=== PATIENT | female | born 1940 | race Caucasian/White ===

== ENCOUNTER 2018-01-18 13:41 | Inpatient (IN) | payer OTHER ==
--- NOTE | 2018-01-18 13:55 | PDOC ---
History of Present Illness - General Chief Complaint: Wound Stated Complaint: WOUND Time Seen by Provider: 01/18/18 13:54 - History of Present Illness Initial Comments: 01/18/18 14:16 Ms. Chahal is a 77 yo female w/ pmh of HTN, HLD, prior CVA (8 years ago), DM, chronic wound to RLE (followed by Dr. Parker), who presents from wound clinic for evaluation of suspected wound infection on direction of Dr. Parker. Patient reports she has likewise had subjective fevers at home. The patient denies chest pain, shortness of breath, headache and dizziness. Denies chills, nausea, vomit, diarrhea and constipation. Denies dysuria, frequency, urgency and hematuria. Allergies: NKS Past History - Past Medical History Allergies/Adverse Reactions: Allergies Allergy/AdvReac Type Severity Reaction Status Date / Time No Known Allergies Allergy Verified 01/18/18 13:47 Home Medications: Ambulatory Orders Coumadin 10 mg PO DAILY 12/28/14 Linzess 145 mcg PO DAILY 12/28/14 Norvasc - 10 mg PO DAILY 12/28/14 Omeprazole 40 mg PO DAILY 12/28/14 Proair Hfa - 108 mcg IH PRN PRN 12/28/14 SYMBICORT 160/4.5mcg - 160 mcg IH BID 12/28/14 Zocor 20 mg PO DAILY 12/28/14 Zyrtec - 10 mg PO HS 12/28/14 Furosemide [Lasix] 20 mg PO Q2D 08/28/16 Collagenase Clostridium Hist. [Santyl] 1 applic TP DAILY #90 oint...g. 10/05/17 Esomeprazole Magnesium [Nexium 24Hr] 40 mg PO DAILY 01/18/18 Glyburide 2.5 mg PO BID 01/18/18 Polyethylene Glycol 3350 [Miralax (For Daily Use) -] 17 gm PO DAILY PRN Sitagliptin Phosphate [Januvia -] 100 mg PO DAILY@0700 01/18/18 Anemia: No Asthma: Yes Cancer: No Cardiac Disorders: Yes CVA: Yes COPD: No CHF: No Dementia: No Diabetes: Yes GI Disorders: Yes Disorders: Yes HTN: Yes Hypercholesterolemia: Yes Liver Disease: No Seizures: No Thyroid Disease: No - Suicide/Smoking/Psychosocial Hx Smoking History: Former smoker Have you smoked in the past 12 months: No If you are a former smoker, when did you quit?: 14yrs ago Information on smoking cessation initiated: No Review of Systems - Review of Systems Comments:: 01/18/18 14:29 GENERAL/CONSTITUTIONAL: +Fever as described. No chills. No weakness. HEAD, EYES, EARS, NOSE AND THROAT: No change in vision. No ear pain or discharge. No sore throat. CARDIOVASCULAR: No chest pain or shortness of breath RESPIRATORY: No cough, wheezing, or hemoptysis. GASTROINTESTINAL: No nausea, vomiting, diarrhea or constipation. GENITOURINARY: No dysuria, frequency, or change in urination. MUSCULOSKELETAL: +RLE chronic wound steadily getting worse for the last month. No joint or muscle swelling or pain. No neck or back pain. SKIN: No rash NEUROLOGIC: No headache, vertigo, loss of consciousness, or change in strength/ sensation. ENDOCRINE: No increased thirst. No abnormal weight change HEMATOLOGIC/LYMPHATIC: No anemia, easy bleeding, or history of blood clots. ALLERGIC/IMMUNOLOGIC: No hives or skin allergy. *Physical Exam - Vital Signs Last Vital Signs Temp Pulse Resp BP Pulse Ox 98.3 F 95 H 18 121/60 97 01/18/18 13:42 01/18/18 13:42 01/18/18 13:42 01/18/18 13:42 01/18/18 13:42 - Physical Exam Comments: 01/18/18 14:30 GENERAL: Awake, alert, and fully oriented, in no acute distress HEAD: No signs of trauma, normocephalic, atraumatic EYES: PERRLA, EOMI, sclera anicteric, conjunctiva clear ENT: Auricles normal inspection, hearing grossly normal, nares patent, oropharynx clear without exudates. Moist mucosa NECK: Normal ROM, supple, no lymphadenopathy, JVD, or masses LUNGS: No distress, speaks full sentences, clear to auscultation bilaterally HEART: Regular rate and rhythm, normal S1 and S2, no murmurs, rubs or gallops, peripheral pulses normal and equal bilaterally. ABDOMEN: Soft, nontender, normoactive bowel sounds. No guarding, no rebound. No masses EXTREMITIES: +RLE approx. 3cm wound w/ 15cm surrounding erythema and warmth. Normal range of motion, no edema. No clubbing or cyanosis. NEUROLOGICAL: Cranial nerves II through XII grossly intact. Normal speech, normal gait, no focal sensorimotor deficits SKIN: Warm, Dry, normal turgor, no rashes or lesions noted. ED Treatment Course - LABORATORY CBC & Chemistry Diagram: 01/18/18 14:15 01/18/18 14:15 Medical Decision Making - Medical Decision Making 01/18/18 14:38 Ms. Chahal is a 77 yo female w/ pmh as described who presents for evaluation of RLE ulcer concerning for infectious process. Sepsis protocol started. Patient started on vanc/zosyn after blood cultures and wound culture drawn. Patient admitted to [facility] for further evaluation. *DC/Admit/Observation/Transfer Diagnosis at time of Disposition: Venous stasis dermatitis of right lower extremity Venous stasis ulcer Qualifiers: Venous stasis ulcer site: unspecified site Varicose vein presence: with varicose veins Non-pressure ulcer stage: unspecified non-pressure ulcer stage Qualified Code(s): I83.009 - Varicose veins of unspecified lower extremity with ulcer of unspecified site - Discharge Dispostion Decision to Admit order: Yes - Referrals - Patient Instructions - Post Discharge Activity
--- NOTE | 2018-01-18 14:28 | PDOC ---
Attending Attestation - Resident Resident Name: Juan Loving - ED Attending Attestation I have performed the following: I have examined & evaluated the patient, The case was reviewed & discussed with the resident, I agree w/resident's findings & plan, Exceptions are as noted - HPI HPI: 01/18/18 14:27 77-year-old female history of hypertension, diabetes, hyperlipidemia, coronary disease, stroke, chronic right lower extremity wound sent in from wound clinic for cellulitis. The patient denies any worsening pain but does report that there is significant redness to the area. Reports subjective fevers at home. Patient was seen by vascular surgeon, Dr. Parker, who sent the patient into the ER for admission for IV antibiotics. - Physicial Exam PE: 01/18/18 14:27 GENERAL: Awake, alert, and fully oriented, in no acute distress HEAD: No signs of trauma EYES: EOMI, sclera anicteric, conjunctiva clear ENT: Auricles normal inspection, hearing grossly normal, nares patent, Moist mucosa NECK: Normal ROM, supple, EXTREMITIES: Normal range of motion. Diffuse erythema and mild pitting edema RLE with superficial chronic R anterior vogt wound ~3x3 cm. No fluctuance. NEUROLOGICAL: Cranial nerves II through XII grossly intact. Normal speech, normal gait SKIN: Warm, Dry, normal turgor, no rashes or lesions noted. - Medical Decision Making 01/18/18 14:28 Vital Signs Temp Pulse Resp BP Pulse Ox 98.3 F 95 H 18 121/60 97 01/18/18 13:42 01/18/18 13:42 01/18/18 13:42 01/18/18 13:42 01/18/18 13:42 I agree that the patient has cellulitis. Obtain blood work including cultures and lactic acid. Initiate empiric IV antibiotics. Admit the patient to the hospital. Heart Score/ECG Review #1 ECG reviewed & interpreted by me at: 15:40 01/18/18 16:32 NSR 84, no std/kody, left axis deviation, LAFB, QTC 479 msec
[2018-01-18 14:31] LABS: BASO % 1.2 % (0-2.0); EOS % 10.1 % (0-4.5); HEMATOCRIT 42.9 % (32.4-45.2); HEMOGLOBIN 14.3 GM/dL (10.7-15.3); LYMPH % 25.9 % (8-40); MCH 29.4 pg (25.7-33.7); MCHC 33.3 g/dl (32.0-36.0); MEAN CELL VOLUME 88.5 fl (80-96); MEAN PLT VOLUME 9.1 fl (7.5-11.1); MONO % 8.1 % (3.8-10.2); NEUT % 54.7 % (42.8-82.8); PLATELET COUNT 216 K/MM3 (134-434); RBC 4.85 M/mm3 (3.60-5.2)
[2018-01-18] MEDS ORDERED: VANCOMYCIN 1,000 MG in DEXTROSE 5%-WATER - 250 ML IVPB ONE (14:33)
[2018-01-18] MEDS ORDERED: PIPERACILLIN/TAZOB 3.375 GM 3.375 GM in DEXTROSE 5%-WATER - 50 ML IVPB ONE (14:33)
[2018-01-18 14:34] LABS: VENOUS PC02 42.6 mmHg (38-52); VENOUS PH 7.37 (7.32-7.42); VENOUS PO2 44.5 mmHg (28-48)
[2018-01-18] MEDS ORDERED: SODIUM CHLORIDE 1,000 ML IV STA (14:34)
[2018-01-18] MEDS ORDERED: VANCOMYCIN 500 MG VIAL (RESTRICTED TO ID ONLY) ONE (14:37)
[2018-01-18] MEDS ORDERED: PIPERACILLIN/TAZOB 3.375 GM 3.375 GM/50 ML BAG IVPB ONE (14:37)
[2018-01-18 14:55] LABS: PROTHROMBIN TIME (PATIENT) 68.9 SEC (9.7-13.0)
[2018-01-18 14:58] LABS: ACTIVATED PTT 68.8 SECONDS (25.2-36.5)
[2018-01-18 15:04] LABS: INR 6.1 (0.83-1.09)
--- NOTE | 2018-01-18 15:04 | HP ---
Admitting History and Physical - Primary Care Physician PCP: Titi York I - Admission History of Present Illness: 77-year-old female history of hypertension, diabetes, hyperlipidemia, coronary disease, stroke on coumadin , chronic right lower extremity wound sent in from wound clinic for cellulitis. The patient denies any worsening pain but does report that there is significant redness to the area. Reports subjective fevers at home. Patient was seen by vascular surgeon, Dr. Parker, who sent the patient into the ER for admission for IV antibiotics. 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 Cardiovascular: Yes: HTN, Hyperlipdemia Endocrine: Yes: Diabetes Mellitus - Smoking History Smoking history: Former smoker Have you smoked in the past 12 months: No If you are a former smoker, when did you quit?: 14yrs ago Home Medications - Allergies Allergies/Adverse Reactions: Allergies Allergy/AdvReac Type Severity Reaction Status Date / Time No Known Allergies Allergy Verified 01/18/18 13:47 - Home Medications Home Medications: Ambulatory Orders Coumadin 10 mg PO DAILY 12/28/14 Linzess 145 mcg PO DAILY 12/28/14 Norvasc - 10 mg PO DAILY 12/28/14 Omeprazole 40 mg PO DAILY 12/28/14 Proair Hfa - 108 mcg IH PRN PRN 12/28/14 SYMBICORT 160/4.5mcg - 160 mcg IH BID 12/28/14 Zocor 40 mg PO DAILY 12/28/14 Zyrtec - 10 mg PO HS 12/28/14 Furosemide [Lasix] 20 mg PO Q2D 08/28/16 Collagenase Clostridium Hist. [Santyl] 1 applic TP DAILY #90 oint...g. 10/05/17 Esomeprazole Magnesium [Nexium 24Hr] 40 mg PO DAILY 01/18/18 Glyburide 2.5 mg PO BID 01/18/18 Polyethylene Glycol 3350 [Miralax (For Daily Use) -] 17 gm PO DAILY PRN Sitagliptin Phosphate [Januvia -] 100 mg PO DAILY@0700 01/18/18 Review of Systems - Review of Systems Gastrointestinal: reports: Abdominal Pain Musculoskeletal: reports: Other (right leg pain) Physical Examination Vital Signs: Vital Signs Temperature 98.3 F 01/18/18 13:42 Pulse Rate 95 H 01/18/18 13:42 Respiratory Rate 18 01/18/18 13:42 Blood Pressure 121/60 01/18/18 13:42 O2 Sat by Pulse Oximetry (%) 97 01/18/18 13:42 Constitutional: Yes: Calm Cardiovascular: Yes: Regular Rate and Rhythm, S1, S2 Respiratory: Yes: CTA Bilaterally Gastrointestinal: Yes: Soft, Distention, Other (RUQ pain) Extremities: Yes: Erythema (tenderness open wound) Edema: Yes Neurological: Yes: Alert, Oriented Labs: CBC, BMP 01/18/18 14:15 Problem List - Problems (1) Venous stasis ulcer Assessment/Plan: iD consult iv abx for cellutlits and wound wound care consult doppler of legs dvt ppx Code(s): I83.009 - VARICOSE VEINS OF UNSP LOWER EXTREMITY W ULCER OF UNSP SITE; L97.909 - NON-PRS CHRONIC ULC UNSP PRT OF UNSP LOW LEG W UNSP SEVERITY Qualifiers: Venous stasis ulcer site: unspecified site Varicose vein presence: with varicose veins Non-pressure ulcer stage: unspecified non-pressure ulcer stage Qualified Code(s): I83.009 - Varicose veins of unspecified lower extremity with ulcer of unspecified site; L97.909 - Non-pressure chronic ulcer of unspecified part of unspecified lower leg with unspecified severity (2) Diabetes Assessment/Plan: bgm hgba1c sliding scale Code(s): E11.9 - TYPE 2 DIABETES MELLITUS WITHOUT COMPLICATIONS Qualifiers: Diabetes mellitus type: type 2 (3) CVA (cerebral vascular accident) Assessment/Plan: on coumadin hold given supratherapeutic INR Code(s): I63.9 - CEREBRAL INFARCTION, UNSPECIFIED (4) COPD (chronic obstructive pulmonary disease) Assessment/Plan: symbicort Code(s): J44.9 - CHRONIC OBSTRUCTIVE PULMONARY DISEASE, UNSPECIFIED (5) Abdominal pain Assessment/Plan: RUQ pain r/o gall stones gi eval Code(s): R10.9 - UNSPECIFIED ABDOMINAL PAIN
[2018-01-18 15:06] LABS: URINE APPEARANCE CLEAR; URINE BILIRUBIN NEGATIVE (<2.0 mg/dL); URINE COLOR YELLOW; URINE GLUCOSE (UA) 1+ (NEGATIVE); URINE KETONE NEGATIVE (NEGATIVE); URINE NITRITE NEGATIVE (NEGATIVE); URINE PROTEIN NEGATIVE (NEGATIVE); URINE UROBILINOGEN NEGATIVE mg/dL (0.2-1.0)
[2018-01-18 15:13] LABS: URINE LEUK ESTERASE 1+ (NEGATIVE)
[2018-01-18 15:16] LABS: EPI CELLS RARE /HPF (FEW); URINE HYALINE CAST 1 /lpf; URINE MUCUS RARE
[2018-01-18 15:55] LABS: ALBUMIN 3.6 g/dl (3.4-5.0); ALK PHOS 78 U/L (45-117); ANION GAP 5 MMOL/L (8-16); BILIRUBIN,TOTAL 0.5 mg/dL (0.2-1); BLOOD UREA NITROGEN 24 mg/dL (7-18); CALCIUM 8.4 mg/dL (8.5-10.1); CHLORIDE 107 mmol/L (98-107); CO2 26 mmol/L (21-32); CREATININE 0.5 mg/dL (0.55-1.3); GLUCOSE,RANDOM 96 mg/dL (74-106); SGOT/AST 22 U/L (15-37); SGPT/ALT 25 U/L (13-61); SODIUM 138 mmol/L (136-145); TOT PROT 7.4 g/dl (6.4-8.2)
[2018-01-18] MEDS: INSULIN SLIDING SCALE (NOVOLOG) 1 VIAL SQ SCH ×2 (16:31→22:18)
--- NOTE | 2018-01-18 18:48 | PN ---
Progress Note (short form) - Note Progress Note: ID Consult dictated Infected non-healing R LE ulcers Cellulitis R LE Hx MSSA/ Pseudomonas wound c/s Await c/s Surgical evaluation Empiric vancomycin/ zosyn
--- NOTE | 2018-01-18 20:33 | CONS ---
DATE OF CONSULTATION: DATE OF DICTATION: 01/18/2018 HISTORY: The patient is a 77-year-old diabetic female with a history of nonhealing leg ulcer who was elevated for right lower extremity cellulitis. She is followed in noted to have Wound Care Center for a nonhealing right leg ulcer. She was seen today where she was noted to have tense swelling of the right lower extremity with erythema, warmth, and a large amount of serous drainage. The reports at home she has had increased weeping from the right lower extremity and subjective fever. She was not feeling well. She was sent from the Wound Care Center to the emergency room. A Doppler exam was performed, and the results are pending. She has had a history of nonhealing ulcer and has had a history of wound infection. Cultures in the past have grown Staphylococcus aureus, pseudomonas, and enterococcus. PAST MEDICAL HISTORY: Positive for hypertension, hyperlipidemia, stroke, diabetes mellitus. ALLERGIES: No known allergies. MEDICATIONS: Glyburide, Coumadin, Norvasc, omeprazole, Symbicort, Zocor, Zyrtec, Lasix, Nexium. SOCIAL HISTORY: Lives at home with her . Former smoker. SYSTEMS REVIEW: Neurologic: No loss of consciousness, seizure activity, focal weakness. Cardiac: Negative chest pain or palpitations. Respiratory: Negative cough or sputum production. Gastrointestinal: Negative vomiting or diarrhea. LABORATORY DATA: White count 7, hematocrit 42.9, platelet count 216, creatinine 0.5. Liver enzymes normal. Urinalysis 1 white cell. Blood and wound culture pending. PHYSICAL EXAMINATION: General: She is awake and alert. She is not acutely toxic appearing. Vital Signs: Temperature 98.3, blood pressure 121/60, pulse 95 and regular, respirations 18 per minute. HEENT: Sclerae anicteric. Heart: Sounds S1, S2. Lungs: Clear. Abdomen: Obese, soft, nontender. Extremities: Examination of the right lower extremity, there are chronic venostasis changes. There is tense swelling of the right lower extremity with patchy erythema and warmth. There are 2 superficial ulcers present over the mid tibial area from which there is a large amount of yellow, serous drainage. No crepitus or fluctuance. No lymphangitic streaking. IMPRESSION: 1. Infected, chronic, nonhealing leg ulcer. 2. Cellulitis of the right lower extremity. 3. Diabetes mellitus. 4. History of Staphylococcus aureus and pseudomonas wound infection. PLAN: Await cultures. Empiric antibiotic coverage with vancomycin and Zosyn. Local wound care. Elevation. The case was discussed with the patient's present at the time of the examination in the emergency room. We will follow. Thank you for the kind referral. ROCHELLE MARS M.D. [id number]
[2018-01-18] MEDS ORDERED: PIPERACILLIN/TAZOBACTAM 3.375 GM VIAL IVPB ONE (22:02)
[2018-01-18] MEDS ORDERED: DEXTROSE 5%-WATER - 50 ML IVPB ONE (22:02)
[2018-01-18] MEDS: PIPERACILLIN/TAZOB 3.375 GM 3.375 GM in DEXTROSE 5%-WATER - 50 ML IVPB SCH (22:05)
[2018-01-18] MEDS: BUDESONIDE/FORMETEROL FUMARATE 160/4.5 mcg INHALER IH SCH (22:06)
[2018-01-18] MEDS: ATORVASTATIN CA 40 MG TABLET (FP) PO SCH (22:06)
[2018-01-19] MEDS ORDERED: PIPERACILLIN/TAZOBACTAM 3.375 GM VIAL IVPB ONE ×2 (01:02→09:15)
[2018-01-19] MEDS ORDERED: DEXTROSE 5%-WATER - 50 ML IVPB ONE ×2 (01:02→09:15)
[2018-01-19] MEDS: PIPERACILLIN/TAZOB 3.375 GM 3.375 GM in DEXTROSE 5%-WATER - 50 ML IVPB SCH ×3 (01:19→17:16)
[2018-01-19] MEDS: VANCOMYCIN 1,000 MG in DEXTROSE 5%-WATER - 250 ML IVPB SCH ×2 (02:22→15:12)
[2018-01-19] MEDS: INSULIN SLIDING SCALE (NOVOLOG) 1 VIAL SQ SCH ×4 (06:42→22:50)
[2018-01-19 08:08] LABS: HEMATOCRIT 41.3 % (32.4-45.2); HEMOGLOBIN 13.7 GM/dL (10.7-15.3); MCH 29.1 pg (25.7-33.7); MCHC 33.1 g/dl (32.0-36.0); MEAN CELL VOLUME 87.7 fl (80-96); MEAN PLT VOLUME 9.3 fl (7.5-11.1); PLATELET COUNT 217 K/MM3 (134-434); RDW 14.6 % (11.6-15.6); WHITE BLOOD COUNT 7.3 K/mm3 (4.0-10.0)
[2018-01-19 08:16] LABS: PROTHROMBIN TIME (PATIENT) 94.7 SEC (9.7-13.0)
[2018-01-19 08:38] LABS: INR 8.38 (0.83-1.09)
[2018-01-19] MEDS ORDERED: PHYTONADIONE 5 MG TABLET PO ONE (08:46)
[2018-01-19] MEDS ORDERED: ALBUTEROL SO4 2.5/IPRATROPIUM 0.5 INH SOL 3 ML VIAL.NEB. NEB PRN (08:50)
[2018-01-19 08:56] LABS: ALBUMIN 3.4 g/dl (3.4-5.0); ALK PHOS 73 U/L (45-117); ANION GAP 6 MMOL/L (8-16); BILIRUBIN,TOTAL 0.8 mg/dL (0.2-1); BLOOD UREA NITROGEN 15 mg/dL (7-18); CALCIUM 8.3 mg/dL (8.5-10.1); CHLORIDE 106 mmol/L (98-107); CO2 27 mmol/L (21-32); CREATININE 0.6 mg/dL (0.55-1.3); GLUCOSE,RANDOM 134 mg/dL (74-106); POTASSIUM 4.3 mmol/L (3.5-5.1); SGOT/AST 18 U/L (15-37); SGPT/ALT 23 U/L (13-61); SODIUM 139 mmol/L (136-145)
--- NOTE | 2018-01-19 09:17 | PN ---
Progress Note, Physician Chief Complaint: RLE cellulitis Coumadin toxicity History of Present Illness: NAD no pain at this time Sent from wound care center for IV abx no S&S of sepsis elevated INR, Unsure why she is on Warfarin - Current Medication List Current Medications: Active Medications Acetaminophen (Tylenol -) 650 mg PO Q4H PRN PRN Reason: PAIN LEVEL 1-5 Albuterol/Ipratropium (Duoneb -) 1 amp NEB Q4H PRN PRN Reason: SHORTNESS OF BREATH Atorvastatin Calcium (Lipitor -) 40 mg PO HS COUNT INCLUDES THE [facility] Last Admin: 01/18/18 22:06 Dose: 40 mg Budesonide/Formoterol Fumarate (Symbicort 160/4.5mcg -) 2 puff IH BID COUNT INCLUDES THE [facility] Last Admin: 01/18/18 22:06 Dose: 2 puff Collagenase (Santyl -) 1 applic TP DAILY COUNT INCLUDES THE [facility]; Protocol Vancomycin HCl 1,000 mg/ (Dextrose) 250 mls @ 166.667 mls/hr IVPB BID@0300, 1500 COUNT INCLUDES THE [facility]; Protocol Last Admin: 01/19/18 02:22 Dose: 166.667 mls/hr Piperacillin Sod/Tazobactam (Sod 3.375 gm/ Dextrose) 50 mls @ 100 mls/hr IVPB Q8H-IV [place]; Protocol Last Admin: 01/19/18 01:19 Dose: 100 mls/hr Insulin Aspart (Novolog Vial Sliding Scale -) 1 vial SQ ACHS COUNT INCLUDES THE [facility]; Protocol Last Admin: 01/19/18 06:42 Dose: Not Given Insulin Detemir (Levemir Vial) 15 units SQ AM COUNT INCLUDES THE [facility] Pantoprazole Sodium (Protonix -) 40 mg PO DAILY COUNT INCLUDES THE [facility] Phytonadione (Mephyton -) 5 mg PO ONCE ONE Stop: 01/19/18 08:47 Sitagliptin Phosphate (Januvia -) 100 mg PO DAILY@0700 COUNT INCLUDES THE [facility] - Objective Vital Signs: Vital Signs Temperature 98.8 F 01/19/18 05:31 Pulse Rate 82 01/19/18 05:31 Respiratory Rate 18 01/19/18 05:31 Blood Pressure 113/63 01/19/18 05:31 O2 Sat by Pulse Oximetry (%) 95 01/18/18 21:00 Constitutional: Yes: Well Nourished, No Distress, Calm Cardiovascular: Yes: Regular Rate and Rhythm Respiratory: Yes: Regular Gastrointestinal: Yes: Normal Bowel Sounds, Soft Musculoskeletal: Yes: WNL Extremities: Yes: WNL, Other (RLE small opening, mild swelling, no erythema, slightly warm to tough) Edema: No Peripheral Pulses WNL: Yes Wound/Incision: Yes: Clean/Dry, Well Approximated, Dressing Removed, Draining ( mild serous fluid) Neurological: Yes: Alert, Oriented Psychiatric: Yes: Alert, Oriented Labs: CBC, BMP 01/19/18 06:00 INR, PTT INR 8.38 (0.83-1.09) H* 01/19/18 06:00 Problem List - Problems (1) Cholelithiasis Assessment/Plan: -on U/S abdomen -No pain at this time, intermittent pain after eating -Nausea after eating Code(s): K80.20 - CALCULUS OF GALLBLADDER W/O CHOLECYSTITIS W/O OBSTRUCTION (2) Venous stasis ulcer Assessment/Plan: -RLE -Seen by ID -afebrile, no leukocytosis -unsure about the need for IV abx -mild serous drainage -no pain at this time, intermittent pain -self ambulatory -uncontrolled diabetes -previously superficial vein insufficiency at distal calf great saphenous vein -Wound culture done-pending, previously grew staph aureus, pseudomonas aeruginosa and enterococcus faecalis Code(s): I83.009 - VARICOSE VEINS OF UNSP LOWER EXTREMITY W ULCER OF UNSP SITE; L97.909 - NON-PRS CHRONIC ULC UNSP PRT OF UNSP LOW LEG W UNSP SEVERITY Qualifiers: Venous stasis ulcer site: unspecified site Varicose vein presence: with varicose veins Non-pressure ulcer stage: unspecified non-pressure ulcer stage Qualified Code(s): I83.009 - Varicose veins of unspecified lower extremity with ulcer of unspecified site; L97.909 - Non-pressure chronic ulcer of unspecified part of unspecified lower leg with unspecified severity (3) Diabetes Assessment/Plan: -A1c at 10.1 -BGM AC HS -restart Januvia 100 mg po daily -Levemir 15 units in AM -Novolog sliding scale -diabetic diet -RD consult -endocrinology f/u outpatient Code(s): E11.9 - TYPE 2 DIABETES MELLITUS WITHOUT COMPLICATIONS Qualifiers: Diabetes mellitus type: type 2 (4) Elevated INR Assessment/Plan: -Unsure why she is on warfarin -elevated 2/2 to abx -Vit K 5 mg po once -no overt bleeding Code(s): R79.1 - ABNORMAL COAGULATION PROFILE Assessment/Plan see problem list possible d/c on PO abx if ID agrees.
[2018-01-19] MEDS ORDERED: PT OWN MED DRAWER 7, Y5N ONE ×2 (09:37→20:29)
[2018-01-19] MEDS: BUDESONIDE/FORMETEROL FUMARATE 160/4.5 mcg INHALER IH SCH ×2 (10:14→22:50)
[2018-01-19] MEDS: sitaGLIPtin PHOSPHATE 100 MG TABLET (FP) PO SCH (10:15)
[2018-01-19] MEDS: PANTOPRAZOLE 40 MG TABLET (FP) PO SCH (10:15)
[2018-01-19] MEDS: COLLAGENASE CLOSTRIDIUM HIST. 30 GRAMS TUBE TP SCH (10:28)
[2018-01-19 11:47] LABS: CHOLESTEROL 102 mg/dL (50-200); HDL CHOLESTEROL 34 mg/dL (40-60); TRIGLYCERIDES 117 mg/dL (0-150)
--- NOTE | 2018-01-19 12:33 | PN ---
Progress Note (short form) - Note Progress Note: continued pain and erythema and warmth of the RLE Vital Signs Period Temp Pulse Resp BP Sys/Daigle Pulse Ox Last 24 Hr 98.0 F-98.8 F 82-95 16-18 110-133/55-70 95-97 cor-rrr lungs clear ext venous stasis changed, right foot is swollen and warm, with erythema and pain up to lower vogt, +skin tears CBC, BMP 01/19/18 06:00 01/19/18 06:00 Microbiology 01/18/18 11:23 Leg - Right Lower Gram Stain - Final 01/18/18 11:23 Leg - Right Lower Wound Culture - Preliminary Presumptive Mssa (Pbp2a Neg) Gram Negative Rasheed 01/18/18 14:40 Urine - Urine Clean Catch Urine Culture - Final Contaminated: Please Repeat a/p soft tissue infection RLE would continue zosyn, d/c vancomycin
--- NOTE | 2018-01-19 15:35 | EKG ---
Test Reason : Blood Pressure : / mmHG Vent. Rate : 084 BPM Atrial Rate : 084 BPM P-R Int : 186 ms QRS Dur : 088 ms QT Int : 406 ms P-R-T Axes : -09 -50 013 degrees QTc Int : 479 ms NORMAL SINUS RHYTHM LEFT ANTERIOR FASCICULAR BLOCK ABNORMAL ECG WHEN COMPARED WITH ECG OF 06-MAY-2009 09:23, NONSPECIFIC T WAVE ABNORMALITY, IMPROVED IN INFERIOR LEADS Confirmed by MD Ian, Issac ([id number]) on 01/19/2018 3:35:38 PM Referred By: Confirmed By:sIsac Sosa MD
[2018-01-19] MEDS ORDERED: INSULIN (NOVOLOG) ASPART 100 UNITS/ML 10ML VIAL ONE ×2 (17:31→20:29)
--- NOTE | 2018-01-19 18:17 | CONSULT ---
- Consultation REQUESTING PROVIDER: Betty Mcdermott WORKPLACE RELATIONS ADVISER CONSULT REQUEST: We have been asked to surgically evaluate this patient for ? symptomatic gallbladder disease ? PCP:Jaclyn Adams HISTORY OF PRESENT ILLNESS: 77 y/o female admitted from Wound Care with ? 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 PMHx: CVA/PVD/CHF/NIDDM/HLD PSHx: noneHome Medications Medication Instructions Recorded Coumadin 10 mg PO DAILY 12/28/14 Linzess 145 mcg PO DAILY 12/28/14 Norvasc - 10 mg PO DAILY 12/28/14 Omeprazole 40 mg PO DAILY 12/28/14 Proair Hfa - 108 mcg IH PRN PRN 12/28/14 SYMBICORT 160/4.5mcg - 160 mcg IH BID 12/28/14 Zocor 40 mg PO DAILY 12/28/14 Zyrtec - 10 mg PO HS 12/28/14 Furosemide [Lasix] 20 mg PO Q2D 08/28/16 Collagenase Clostridium Hist. 1 applic TP DAILY #90 oint...g. 10/05/17 [Santyl] Esomeprazole Magnesium [Nexium 40 mg PO DAILY 01/18/18 24Hr] Glyburide 2.5 mg PO BID 01/18/18 Polyethylene Glycol 3350 [Miralax 17 gm PO DAILY PRN 01/18/18 (For Daily Use) -] Sitagliptin Phosphate [Januvia -] 100 mg PO DAILY@0700 01/18/18 Allergies Allergy/AdvReac Type Severity Reaction Status Date / Time No Known Allergies Allergy Verified 01/18/18 13:47 PHYSICAL EXAM: GENERAL: Awake, alert, and fully oriented, in no acute distress. HEAD: Normal with no signs of trauma. EYES: sclera anicteric, conjunctiva clear. NECK: Normal ROM, supple without lymphadenopathy, JVD, or masses. ABDOMEN: Soft, nontender, not distended, normoactive bowel sounds, no guarding, no rebound, no masses. No organomegaly. No hernias MUSCULOSKELETAL: Normal ROM at all joints. No bony deformities or tenderness. No CVA tenderness. UPPER EXTREMITIES: VSD present LOWER EXTREMITIES: wound RLE; VSD present NEUROLOGICAL: Normal speech, gait not observed. PSYCH: Cooperative. Good eye contact. Appropriate mood and affect. SKIN: Warm, dry, normal turgor, no rashes or lesions noted. Vital Signs Temperature 97.7 F 01/19/18 16:50 Pulse Rate 91 H 01/19/18 16:50 Respiratory Rate 18 01/19/18 16:50 Blood Pressure 110/65 01/19/18 16:50 O2 Sat by Pulse Oximetry (%) 94 L 01/19/18 09:00 Lab Results WBC 7.3 K/mm3 (4.0-10.0) 01/19/18 06:00 RBC 4.70 M/mm3 (3.60-5.2) 01/19/18 06:00 Hgb 13.7 GM/dL (10.7-15.3) 01/19/18 06:00 Hct 41.3 % (32.4-45.2) 01/19/18 06:00 MCV 87.7 fl (80-96) 01/19/18 06:00 MCHC 33.1 g/dl (32.0-36.0) 01/19/18 06:00 RDW 14.6 % (11.6-15.6) 01/19/18 06:00 Plt Count 217 K/MM3 (134-434) 01/19/18 06:00 Sodium 139 mmol/L (136-145) 01/19/18 06:00 Potassium 4.3 mmol/L (3.5-5.1) 01/19/18 06:00 Chloride 106 mmol/L (98-107) 01/19/18 06:00 Carbon Dioxide 27 mmol/L (21-32) 01/19/18 06:00 Anion Gap 6 MMOL/L (8-16) L 01/19/18 06:00 BUN 15 mg/dL (7-18) 01/19/18 06:00 Creatinine 0.6 mg/dL (0.55-1.3) 01/19/18 06:00 Random Glucose 134 mg/dL (74-106) H 01/19/18 06:00 Calcium 8.3 mg/dL (8.5-10.1) L 01/19/18 06:00 INR 8.38 (0.83-1.09) H* 01/19/18 06:00 US- normal biliary tract h/e slight cbd dilatation increased since 2010 IMP: no evidence of an acute surgical problem at this time; no evidence of symptomatic gallbladder disease h/e ongoing w/u is indicated as noted in US report PLAN:No surgical intervention indicated at this time; ongoing w/u as an outpatient. Armand Haile MD FACS
[2018-01-19] MEDS: ATORVASTATIN CA 20 MG TABLET (FP) PO SCH (22:51)
[2018-01-19] MEDS: ATORVASTATIN CA 40 MG TABLET (FP) PO SCH (22:57)
[2018-01-20] MEDS ORDERED: PIPERACILLIN/TAZOBACTAM 3.375 GM VIAL IVPB ONE ×3 (02:30→17:30)
[2018-01-20] MEDS ORDERED: DEXTROSE 5%-WATER - 50 ML IVPB ONE ×3 (02:31→17:30)
[2018-01-20] MEDS: PIPERACILLIN/TAZOB 3.375 GM 3.375 GM in DEXTROSE 5%-WATER - 50 ML IVPB SCH ×3 (02:41→18:38)
[2018-01-20] MEDS ORDERED: PT OWN MED DRAWER 7, Y5N ONE (03:40)
[2018-01-20] MEDS: VANCOMYCIN 1,000 MG in DEXTROSE 5%-WATER - 250 ML IVPB SCH (03:42)
[2018-01-20] MEDS: INSULIN SLIDING SCALE (NOVOLOG) 1 VIAL SQ SCH ×4 (07:08→22:06)
[2018-01-20] MEDS: INSULIN (LEVEMIR) 100 UNITS/ML UNITS SQ SCH (07:08)
[2018-01-20] MEDS: sitaGLIPtin PHOSPHATE 100 MG TABLET (FP) PO SCH (07:08)
[2018-01-20] MEDS ORDERED: INSULIN (NOVOLOG) ASPART 100 UNITS/ML 10ML VIAL ONE ×3 (07:13→21:12)
[2018-01-20 07:58] LABS: INR 2.2 (0.83-1.09); PROTHROMBIN TIME (PATIENT) 24.9 SEC (9.7-13.0)
--- NOTE | 2018-01-20 07:58 | PN ---
Progress Note, Physician Chief Complaint: RLE cellulitis Coumadin toxicity History of Present Illness: NAD no pain at this time Sent from wound care center for IV abx no S&S of sepsis elevated INR, Unsure why she is on Warfarin - Current Medication List Current Medications: Active Medications Acetaminophen (Tylenol -) 650 mg PO Q4H PRN PRN Reason: PAIN LEVEL 1-5 Albuterol/Ipratropium (Duoneb -) 1 amp NEB Q4H PRN PRN Reason: SHORTNESS OF BREATH Last Admin: 01/19/18 19:40 Dose: 1 amp Atorvastatin Calcium (Lipitor -) 20 mg PO HS [facility] Last Admin: 01/19/18 22:51 Dose: 20 mg Budesonide/Formoterol Fumarate (Symbicort 160/4.5mcg -) 2 puff IH BID [facility] Last Admin: 01/19/18 22:50 Dose: 2 puff Collagenase (Santyl -) 1 applic TP DAILY [facility]; Protocol Last Admin: 01/19/18 10:28 Dose: 1 applic Vancomycin HCl 1,000 mg/ (Dextrose) 250 mls @ 166.667 mls/hr IVPB BID@0300, 1500 [facility]; Protocol Last Admin: 01/20/18 03:42 Dose: 166.667 mls/hr Piperacillin Sod/Tazobactam (Sod 3.375 gm/ Dextrose) 50 mls @ 100 mls/hr IVPB Q8H-IV [facility]; Protocol Last Admin: 01/20/18 02:41 Dose: 100 mls/hr Insulin Aspart (Novolog Vial Sliding Scale -) 1 vial SQ ACHS [facility]; Protocol Last Admin: 01/20/18 07:08 Dose: Not Given Insulin Detemir (Levemir Vial) 15 units SQ AM [facility] Last Admin: 01/20/18 07:08 Dose: 15 unit Pantoprazole Sodium (Protonix -) 40 mg PO DAILY [facility] Last Admin: 01/19/18 10:15 Dose: 40 mg Sitagliptin Phosphate (Januvia -) 100 mg PO DAILY@0700 [facility] Last Admin: 01/20/18 07:08 Dose: 100 mg - Objective Vital Signs: Vital Signs Temperature 98 F 01/20/18 04:58 Pulse Rate 86 01/20/18 04:58 Respiratory Rate 18 01/20/18 04:58 Blood Pressure 117/73 01/20/18 04:58 O2 Sat by Pulse Oximetry (%) 96 01/19/18 21:00 Constitutional: Yes: Well Nourished, No Distress, Calm Cardiovascular: Yes: Regular Rate and Rhythm Respiratory: Yes: Regular Gastrointestinal: Yes: Normal Bowel Sounds, Soft Musculoskeletal: Yes: WNL Extremities: Yes: Other (RLE swelling and warm to touch with small opening) Edema: Yes (RLE ) Peripheral Pulses WNL: Yes Wound/Incision: Yes: Dressing Dry and Intact Neurological: Yes: Alert, Oriented Psychiatric: Yes: Alert, Oriented Labs: CBC, BMP 01/19/18 06:00 01/19/18 06:00 INR, PTT INR 8.38 (0.83-1.09) H* 01/19/18 06:00 Problem List - Problems (1) Cholelithiasis Assessment/Plan: -on U/S abdomen -No pain at this time, intermittent pain after eating -Nausea after eating -Seen by surgery -no surgical intervention recommended at this time Code(s): K80.20 - CALCULUS OF GALLBLADDER W/O CHOLECYSTITIS W/O OBSTRUCTION (2) Venous stasis ulcer Assessment/Plan: -RLE -Seen by ID -afebrile, no leukocytosis -unsure about the need for IV abx -mild serous drainage -no pain at this time, intermittent pain -self ambulatory -uncontrolled diabetes -previously superficial vein insufficiency at distal calf great saphenous vein -Wound culture previously grew staph aureus, pseudomonas aeruginosa and enterococcus faecalis -WC: Microbiology 01/18/18 15:00 Blood - Peripheral Venous Blood Culture - Preliminary NO GROWTH OBTAINED AFTER 24 HOURS, INCUBATION TO CONTINUE FOR 4 DAYS. 01/18/18 14:15 Blood - Peripheral Venous Blood Culture - Preliminary NO GROWTH OBTAINED AFTER 24 HOURS, INCUBATION TO CONTINUE FOR 4 DAYS. 01/18/18 11:23 Leg - Right Lower Gram Stain - Final 01/18/18 11:23 Leg - Right Lower Wound Culture - Preliminary Presumptive Mssa (Pbp2a Neg) Gram Negative Rasheed 01/18/18 14:40 Urine - Urine Clean Catch Urine Culture - Final Contaminated: Please Repeat Code(s): I83.009 - VARICOSE VEINS OF UNSP LOWER EXTREMITY W ULCER OF UNSP SITE; L97.909 - NON-PRS CHRONIC ULC UNSP PRT OF UNSP LOW LEG W UNSP SEVERITY Qualifiers: Venous stasis ulcer site: unspecified site Varicose vein presence: with varicose veins Non-pressure ulcer stage: unspecified non-pressure ulcer stage Qualified Code(s): I83.009 - Varicose veins of unspecified lower extremity with ulcer of unspecified site; L97.909 - Non-pressure chronic ulcer of unspecified part of unspecified lower leg with unspecified severity (3) Diabetes Assessment/Plan: -A1c at 10.1 -BGM AC HS -restart Januvia 100 mg po daily -Levemir 15 units in AM -Novolog sliding scale -diabetic diet -RD consult -endocrinology f/u outpatient Code(s): E11.9 - TYPE 2 DIABETES MELLITUS WITHOUT COMPLICATIONS Qualifiers: Diabetes mellitus type: type 2 (4) Elevated INR Assessment/Plan: -Unsure why she is on warfarin -elevated 2/2 to abx -Vit K 5 mg po once yesterday -no overt bleeding -repeat INR pending Code(s): R79.1 - ABNORMAL COAGULATION PROFILE Assessment/Plan see problem list
--- NOTE | 2018-01-20 11:12 | PN ---
Progress Note (short form) - Note Progress Note: less swelling still pain RLE no abdominal pain Vital Signs Period Temp Pulse Resp BP Sys/Daigle Pulse Ox Last 24 Hr 97.7 F-98.7 F 86-91 18-20 99-117/45-73 96 cor-rrr lungs clear abd soft,nt ext less swelling of the right foot, less warmth, less erythema CBC, BMP 01/19/18 06:00 01/19/18 06:00 Microbiology 01/18/18 15:00 Blood - Peripheral Venous Blood Culture - Preliminary NO GROWTH OBTAINED AFTER 24 HOURS, INCUBATION TO CONTINUE FOR 4 DAYS. 01/18/18 14:15 Blood - Peripheral Venous Blood Culture - Preliminary NO GROWTH OBTAINED AFTER 24 HOURS, INCUBATION TO CONTINUE FOR 4 DAYS. 01/18/18 11:23 Leg - Right Lower Gram Stain - Final 01/18/18 11:23 Leg - Right Lower Wound Culture - Preliminary Presumptive Mssa (Pbp2a Neg) Gram Negative Rasheed 01/18/18 14:40 Urine - Urine Clean Catch Urine Culture - Final Contaminated: Please Repeat Current Medications Acetaminophen (Tylenol -) 650 mg PO Q4H PRN PRN Reason: PAIN LEVEL 1-5 Albuterol/Ipratropium (Duoneb -) 1 amp NEB Q4H PRN PRN Reason: SHORTNESS OF BREATH Last Admin: 01/19/18 19:40 Dose: 1 amp Atorvastatin Calcium (Lipitor -) 20 mg PO HS [facility] Last Admin: 01/19/18 22:51 Dose: 20 mg Budesonide/Formoterol Fumarate (Symbicort 160/4.5mcg -) 2 puff IH BID [facility] Last Admin: 01/19/18 22:50 Dose: 2 puff Collagenase (Santyl -) 1 applic TP DAILY [facility]; Protocol Last Admin: 01/19/18 10:28 Dose: 1 applic Vancomycin HCl 1,000 mg/ (Dextrose) 250 mls @ 166.667 mls/hr IVPB BID@0300, 1500 [facility]; Protocol Last Admin: 01/20/18 03:42 Dose: 166.667 mls/hr Piperacillin Sod/Tazobactam (Sod 3.375 gm/ Dextrose) 50 mls @ 100 mls/hr IVPB Q8H-IV [facility]; Protocol Last Admin: 01/20/18 02:41 Dose: 100 mls/hr Insulin Aspart (Novolog Vial Sliding Scale -) 1 vial SQ ACHS [facility]; Protocol Last Admin: 01/20/18 07:08 Dose: Not Given Insulin Detemir (Levemir Vial) 15 units SQ AM [facility] Last Admin: 01/20/18 07:08 Dose: 15 unit Pantoprazole Sodium (Protonix -) 40 mg PO DAILY [facility] Last Admin: 01/19/18 10:15 Dose: 40 mg Sitagliptin Phosphate (Januvia -) 100 mg PO DAILY@0700 [facility] Last Admin: 01/20/18 07:08 Dose: 100 mg a/p soft tissue infection RLE would continue zosyn, d/c vancomycin will need MRI/MRCP to f/u CBD dilatation as recommended by radiology diabetes poorly controlled- hgbaic is 10 nutrition evaluation
[2018-01-20] MEDS: PANTOPRAZOLE 40 MG TABLET (FP) PO SCH (12:01)
[2018-01-20] MEDS: BUDESONIDE/FORMETEROL FUMARATE 160/4.5 mcg INHALER IH SCH ×2 (12:03→22:06)
[2018-01-20 13:21] VITALS: BMI 29.2
[2018-01-20] MEDS ORDERED: WARFARIN NA 3 MG TABLET PO SCH (18:00)
[2018-01-20] MEDS: COLLAGENASE CLOSTRIDIUM HIST. 30 GRAMS TUBE TP SCH (19:00)
[2018-01-20] MEDS: ATORVASTATIN CA 20 MG TABLET (FP) PO SCH (22:06)
[2018-01-21] MEDS ORDERED: PIPERACILLIN/TAZOBACTAM 3.375 GM VIAL IVPB ONE ×3 (01:53→17:26)
[2018-01-21] MEDS ORDERED: DEXTROSE 5%-WATER - 50 ML IVPB ONE ×3 (01:53→17:26)
[2018-01-21] MEDS: PIPERACILLIN/TAZOB 3.375 GM 3.375 GM in DEXTROSE 5%-WATER - 50 ML IVPB SCH ×3 (02:13→18:01)
[2018-01-21] MEDS: ACETAMINOPHEN 325 MG TABLET (FP) PO PRN (06:36)
[2018-01-21] MEDS: sitaGLIPtin PHOSPHATE 100 MG TABLET (FP) PO SCH (06:36)
[2018-01-21] MEDS: INSULIN SLIDING SCALE (NOVOLOG) 1 VIAL SQ SCH ×4 (06:38→22:34)
[2018-01-21] MEDS: INSULIN (LEVEMIR) 100 UNITS/ML UNITS SQ SCH (06:39)
[2018-01-21 07:54] LABS: INR 1.33 (0.83-1.09)
[2018-01-21] MEDS ORDERED: INSULIN (LEVEMIR) 100 UNITS/ML UNITS SQ ONE (09:23)
[2018-01-21] MEDS ORDERED: PT OWN MED DRAWER 7, Y5N ONE ×2 (09:27→16:40)
[2018-01-21] MEDS: PANTOPRAZOLE 40 MG TABLET (FP) PO SCH (09:36)
--- NOTE | 2018-01-21 11:48 | PN ---
Progress Note, Physician Chief Complaint: patient seen and examined on iv abx - Current Medication List Current Medications: Active Medications Acetaminophen (Tylenol -) 650 mg PO Q4H PRN PRN Reason: PAIN LEVEL 1-5 Last Admin: 01/21/18 06:36 Dose: 650 mg Albuterol/Ipratropium (Duoneb -) 1 amp NEB Q4H PRN PRN Reason: SHORTNESS OF BREATH Last Admin: 01/19/18 19:40 Dose: 1 amp Atorvastatin Calcium (Lipitor -) 20 mg PO HS [facility] Last Admin: 01/20/18 22:06 Dose: 20 mg Budesonide/Formoterol Fumarate (Symbicort 160/4.5mcg -) 2 puff IH BID [facility] Last Admin: 01/20/18 22:06 Dose: 2 puff Collagenase (Santyl -) 1 applic TP DAILY [facility]; Protocol Last Admin: 01/20/18 19:00 Dose: 1 applic Piperacillin Sod/Tazobactam (Sod 3.375 gm/ Dextrose) 50 mls @ 100 mls/hr IVPB Q8H-IV [facility]; Protocol Last Admin: 01/21/18 09:36 Dose: 100 mls/hr Insulin Aspart (Novolog Vial Sliding Scale -) 1 vial SQ ACHS [facility]; Protocol Last Admin: 01/21/18 06:38 Dose: Not Given Insulin Detemir (Levemir Vial) 15 units SQ AM [facility] Last Admin: 01/21/18 06:39 Dose: 15 unit Pantoprazole Sodium (Protonix -) 40 mg PO DAILY [facility] Last Admin: 01/21/18 09:36 Dose: 40 mg Sitagliptin Phosphate (Januvia -) 100 mg PO DAILY@0700 [facility] Last Admin: 01/21/18 06:36 Dose: 100 mg Warfarin Sodium (Coumadin -) 3 mg PO DAILY@1800 [facility] Last Admin: 01/20/18 18:32 Dose: 3 mg - Objective Vital Signs: Vital Signs Temperature 97.3 F L 01/21/18 06:03 Pulse Rate 97 H 01/21/18 06:03 Respiratory Rate 18 01/21/18 06:03 Blood Pressure 142/74 01/21/18 06:03 O2 Sat by Pulse Oximetry (%) 95 01/20/18 21:00 Constitutional: Yes: Calm Neck: Yes: Trachea Midline Cardiovascular: Yes: Regular Rate and Rhythm, S1, S2 Respiratory: Yes: CTA Bilaterally Gastrointestinal: Yes: Soft Extremities: Yes: Other (leg erythema less swelling less small open wound) Neurological: Yes: Alert, Oriented Labs: CBC, BMP 01/19/18 06:00 01/19/18 06:00 INR, PTT INR 1.33 (0.83-1.09) H 01/21/18 06:15 Problem List - Problems (1) Venous stasis ulcer Assessment/Plan: iD consult noted iv abx for cellutlits and wound doppler of legs - no dvt dvt ppx Microbiology 01/18/18 11:23 Leg - Right Lower Gram Stain - Final 01/18/18 11:23 Leg - Right Lower Wound Culture - Final Staphylococcus Aureus Enterobacter Cloacae Code(s): I83.009 - VARICOSE VEINS OF UNSP LOWER EXTREMITY W ULCER OF UNSP SITE; L97.909 - NON-PRS CHRONIC ULC UNSP PRT OF UNSP LOW LEG W UNSP SEVERITY Qualifiers: Venous stasis ulcer site: unspecified site Varicose vein presence: with varicose veins Non-pressure ulcer stage: unspecified non-pressure ulcer stage Qualified Code(s): I83.009 - Varicose veins of unspecified lower extremity with ulcer of unspecified site; L97.909 - Non-pressure chronic ulcer of unspecified part of unspecified lower leg with unspecified severity (2) Diabetes Assessment/Plan: bgm hgba1c 10.1 sliding scale levemir and januvia endocrine consult Code(s): E11.9 - TYPE 2 DIABETES MELLITUS WITHOUT COMPLICATIONS Qualifiers: Diabetes mellitus type: type 2 (3) CVA (cerebral vascular accident) Assessment/Plan: on coumadin per daily INR inc dose to 4mg today Code(s): I63.9 - CEREBRAL INFARCTION, UNSPECIFIED (4) COPD (chronic obstructive pulmonary disease) Assessment/Plan: symbicort Code(s): J44.9 - CHRONIC OBSTRUCTIVE PULMONARY DISEASE, UNSPECIFIED (5) Abdominal pain Assessment/Plan: RUQ pain better seen by surgery MRI?MRCP as outpatinet Code(s): R10.9 - UNSPECIFIED ABDOMINAL PAIN
[2018-01-21] MEDS ORDERED: INSULIN (NOVOLOG) ASPART 100 UNITS/ML 10ML VIAL ONE ×2 (12:30→21:48)
[2018-01-21] MEDS: COLLAGENASE CLOSTRIDIUM HIST. 30 GRAMS TUBE TP SCH (12:37)
--- NOTE | 2018-01-21 13:42 | PN ---
Progress Note, Physician History of Present Illness: C/O R LE pain No c/o fever/ chills Wound c/s MSSA/ Enterobacter - Current Medication List Current Medications: Active Medications Acetaminophen (Tylenol -) 650 mg PO Q4H PRN PRN Reason: PAIN LEVEL 1-5 Last Admin: 01/21/18 06:36 Dose: 650 mg Albuterol/Ipratropium (Duoneb -) 1 amp NEB Q4H PRN PRN Reason: SHORTNESS OF BREATH Last Admin: 01/19/18 19:40 Dose: 1 amp Atorvastatin Calcium (Lipitor -) 20 mg PO HS [facility] Last Admin: 01/20/18 22:06 Dose: 20 mg Budesonide/Formoterol Fumarate (Symbicort 160/4.5mcg -) 2 puff IH BID [facility] Last Admin: 01/20/18 22:06 Dose: 2 puff Collagenase (Santyl -) 1 applic TP DAILY [facility]; Protocol Last Admin: 01/21/18 12:37 Dose: 1 applic Piperacillin Sod/Tazobactam (Sod 3.375 gm/ Dextrose) 50 mls @ 100 mls/hr IVPB Q8H-IV [facility]; Protocol Last Admin: 01/21/18 09:36 Dose: 100 mls/hr Insulin Aspart (Novolog Vial Sliding Scale -) 1 vial SQ ACHS [facility]; Protocol Last Admin: 01/21/18 12:34 Dose: 2 units Insulin Detemir (Levemir Vial) 15 units SQ AM [facility] Last Admin: 01/21/18 06:39 Dose: 15 unit Pantoprazole Sodium (Protonix -) 40 mg PO DAILY [facility] Last Admin: 01/21/18 09:36 Dose: 40 mg Sitagliptin Phosphate (Januvia -) 100 mg PO DAILY@0700 [facility] Last Admin: 01/21/18 06:36 Dose: 100 mg Warfarin Sodium (Coumadin -) 4 mg PO DAILY@1800 [facility] - Objective Vital Signs: Vital Signs Temperature 97.3 F L 01/21/18 06:03 Pulse Rate 97 H 01/21/18 06:03 Respiratory Rate 18 01/21/18 06:03 Blood Pressure 142/74 01/21/18 06:03 O2 Sat by Pulse Oximetry (%) 95 01/20/18 21:00 Constitutional: Yes: No Distress Eyes: Yes: Conjunctiva Clear Cardiovascular: Yes: Regular Rate and Rhythm, S1, S2 Respiratory: Yes: CTA Bilaterally Gastrointestinal: Yes: Normal Bowel Sounds, Soft. No: Tenderness Musculoskeletal: Yes: Other (+ R LE swelling / warmth Less erythema No drainage noted) Labs: CBC, BMP 01/19/18 06:00 01/19/18 06:00 INR, PTT INR 1.33 (0.83-1.09) H 01/21/18 06:15 Assessment/Plan Cellulitis/ infected ulcer R LE Diabetes mellitus Substitute ceftriaxone Local wound care
[2018-01-21] MEDS: BUDESONIDE/FORMETEROL FUMARATE 160/4.5 mcg INHALER IH SCH ×2 (15:46→23:14)
[2018-01-21] MEDS: WARFARIN NA 2 MG TABLET (UD) PO SCH (18:02)
[2018-01-21] MEDS: ATORVASTATIN CA 20 MG TABLET (FP) PO SCH (22:34)
[2018-01-22] MEDS ORDERED: DEXTROSE 5%-WATER - 50 ML IVPB ONE ×3 (01:30→16:46)
[2018-01-22] MEDS ORDERED: PIPERACILLIN/TAZOBACTAM 3.375 GM VIAL IVPB ONE ×3 (01:30→16:46)
[2018-01-22] MEDS: PIPERACILLIN/TAZOB 3.375 GM 3.375 GM in DEXTROSE 5%-WATER - 50 ML IVPB SCH ×3 (02:34→17:06)
[2018-01-22] MEDS: sitaGLIPtin PHOSPHATE 100 MG TABLET (FP) PO SCH (06:52)
[2018-01-22] MEDS: INSULIN (LEVEMIR) 100 UNITS/ML UNITS SQ SCH (06:53)
[2018-01-22] MEDS: INSULIN SLIDING SCALE (NOVOLOG) 1 VIAL SQ SCH ×4 (06:56→21:01)
[2018-01-22] MEDS: COLLAGENASE CLOSTRIDIUM HIST. 30 GRAMS TUBE TP SCH (10:43)
[2018-01-22] MEDS: PANTOPRAZOLE 40 MG TABLET (FP) PO SCH (10:43)
[2018-01-22] MEDS: BUDESONIDE/FORMETEROL FUMARATE 160/4.5 mcg INHALER IH SCH ×2 (10:43→21:02)
--- NOTE | 2018-01-22 15:14 | PN ---
Progress Note, Physician Chief Complaint: complaining of left ankle pain on iv abx - Current Medication List Current Medications: Active Medications Acetaminophen (Tylenol -) 650 mg PO Q4H PRN PRN Reason: PAIN LEVEL 1-5 Last Admin: 01/21/18 06:36 Dose: 650 mg Albuterol/Ipratropium (Duoneb -) 1 amp NEB Q4H PRN PRN Reason: SHORTNESS OF BREATH Last Admin: 01/19/18 19:40 Dose: 1 amp Atorvastatin Calcium (Lipitor -) 20 mg PO HS [facility] Last Admin: 01/21/18 22:34 Dose: 20 mg Budesonide/Formoterol Fumarate (Symbicort 160/4.5mcg -) 2 puff IH BID [facility] Last Admin: 01/22/18 10:43 Dose: 2 puff Collagenase (Santyl -) 1 applic TP DAILY [facility]; Protocol Last Admin: 01/22/18 10:43 Dose: 1 applic Piperacillin Sod/Tazobactam (Sod 3.375 gm/ Dextrose) 50 mls @ 100 mls/hr IVPB Q8H-IV [facility]; Protocol Last Admin: 01/22/18 10:43 Dose: 100 mls/hr Insulin Aspart (Novolog Vial Sliding Scale -) 1 vial SQ ACHS [facility]; Protocol Last Admin: 01/22/18 11:20 Dose: 2 units Insulin Detemir (Levemir Vial) 15 units SQ AM [facility] Last Admin: 01/22/18 06:53 Dose: 15 unit Pantoprazole Sodium (Protonix -) 40 mg PO DAILY [facility] Last Admin: 01/22/18 10:43 Dose: 40 mg Sitagliptin Phosphate (Januvia -) 100 mg PO DAILY@0700 [facility] Last Admin: 01/22/18 06:52 Dose: 100 mg Warfarin Sodium (Coumadin -) 4 mg PO DAILY@1800 [facility] Last Admin: 01/21/18 18:02 Dose: 4 mg - Objective Vital Signs: Vital Signs Temperature 97.3 F L 01/22/18 15:01 Pulse Rate 95 H 01/22/18 15:01 Respiratory Rate 18 01/22/18 15:01 Blood Pressure 125/65 01/22/18 15:01 O2 Sat by Pulse Oximetry (%) 95 01/22/18 09:00 Constitutional: Yes: Calm Cardiovascular: Yes: Regular Rate and Rhythm, S1, S2, Other Respiratory: Yes: CTA Bilaterally Gastrointestinal: Yes: Normal Bowel Sounds, Soft Extremities: Yes: Other (erythema and warmth decrease ankle tenderness) Labs: CBC, BMP 01/19/18 06:00 01/19/18 06:00 INR, PTT INR 1.33 (0.83-1.09) H 01/21/18 06:15 Problem List - Problems (1) Venous stasis ulcer Assessment/Plan: iD consult noted iv abx for cellutlits and wound doppler of legs - no dvt dvt ppx Microbiology 01/18/18 11:23 Leg - Right Lower Gram Stain - Final 01/18/18 11:23 Leg - Right Lower Wound Culture - Final Staphylococcus Aureus Enterobacter Cloacae check xray to r/o fracture Code(s): I83.009 - VARICOSE VEINS OF UNSP LOWER EXTREMITY W ULCER OF UNSP SITE; L97.909 - NON-PRS CHRONIC ULC UNSP PRT OF UNSP LOW LEG W UNSP SEVERITY Qualifiers: Venous stasis ulcer site: unspecified site Varicose vein presence: with varicose veins Non-pressure ulcer stage: unspecified non-pressure ulcer stage Qualified Code(s): I83.009 - Varicose veins of unspecified lower extremity with ulcer of unspecified site; L97.909 - Non-pressure chronic ulcer of unspecified part of unspecified lower leg with unspecified severity (2) Diabetes Assessment/Plan: bgm hgba1c 10.1 sliding scale levemir and januvia endocrine consult Code(s): E11.9 - TYPE 2 DIABETES MELLITUS WITHOUT COMPLICATIONS Qualifiers: Diabetes mellitus type: type 2 (3) CVA (cerebral vascular accident) Assessment/Plan: on coumadin per daily INR inc dose to 4mg today Code(s): I63.9 - CEREBRAL INFARCTION, UNSPECIFIED (4) COPD (chronic obstructive pulmonary disease) Assessment/Plan: symbicort Code(s): J44.9 - CHRONIC OBSTRUCTIVE PULMONARY DISEASE, UNSPECIFIED (5) Abdominal pain Code(s): R10.9 - UNSPECIFIED ABDOMINAL PAIN
[2018-01-22 19:11] LABS: INR 1.35 (0.83-1.09); PROTHROMBIN TIME (PATIENT) 15.2 SEC (9.7-13.0)
[2018-01-22] MEDS: ACETAMINOPHEN 325 MG TABLET (FP) PO PRN (20:10)
[2018-01-22] MEDS ORDERED: INSULIN (NOVOLOG) ASPART 100 UNITS/ML 10ML VIAL ONE (20:57)
[2018-01-22] MEDS: ATORVASTATIN CA 20 MG TABLET (FP) PO SCH (21:02)
[2018-01-23] MEDS ORDERED: PIPERACILLIN/TAZOBACTAM 3.375 GM VIAL IVPB ONE ×3 (01:35→17:25)
[2018-01-23] MEDS ORDERED: DEXTROSE 5%-WATER - 50 ML IVPB ONE ×3 (01:35→17:26)
[2018-01-23] MEDS: PIPERACILLIN/TAZOB 3.375 GM 3.375 GM in DEXTROSE 5%-WATER - 50 ML IVPB SCH ×3 (01:49→17:29)
[2018-01-23] MEDS: WARFARIN NA 2 MG TABLET (UD) PO SCH ×2 (05:22→17:30)
[2018-01-23] MEDS: INSULIN SLIDING SCALE (NOVOLOG) 1 VIAL SQ SCH ×4 (06:14→21:57)
[2018-01-23] MEDS: sitaGLIPtin PHOSPHATE 100 MG TABLET (FP) PO SCH (06:22)
[2018-01-23] MEDS: INSULIN (LEVEMIR) 100 UNITS/ML UNITS SQ SCH (06:22)
[2018-01-23 06:57] LABS: BASO % 1.4 % (0-2.0); HEMATOCRIT 41.5 % (32.4-45.2); HEMOGLOBIN 13.4 GM/dL (10.7-15.3); LYMPH % 31.7 % (8-40); MCH 28.9 pg (25.7-33.7); MCHC 32.4 g/dl (32.0-36.0); MEAN CELL VOLUME 89.1 fl (80-96); MONO % 6.5 % (3.8-10.2); NEUT % 51.4 % (42.8-82.8); PLATELET COUNT 250 K/MM3 (134-434); RBC 4.65 M/mm3 (3.60-5.2); RDW 14.9 % (11.6-15.6); WHITE BLOOD COUNT 6.4 K/mm3 (4.0-10.0)
[2018-01-23 07:26] LABS: INR 1.24 (0.83-1.09)
[2018-01-23 07:27] LABS: ALBUMIN 3.4 g/dl (3.4-5.0); ALK PHOS 75 U/L (45-117); ANION GAP 6 MMOL/L (8-16); BILIRUBIN,TOTAL 0.6 mg/dL (0.2-1); BLOOD UREA NITROGEN 18 mg/dL (7-18); CALCIUM 8.5 mg/dL (8.5-10.1); CHLORIDE 106 mmol/L (98-107); CO2 28 mmol/L (21-32); CREATININE 0.7 mg/dL (0.55-1.3); GLUCOSE,RANDOM 148 mg/dL (74-106); POTASSIUM 4.4 mmol/L (3.5-5.1); SGOT/AST 14 U/L (15-37); SGPT/ALT 22 U/L (13-61); SODIUM 140 mmol/L (136-145); TOT PROT 7.2 g/dl (6.4-8.2)
--- NOTE | 2018-01-23 10:00 | DS ---
Physical Examination Vital Signs: Vital Signs Temperature 97.6 F 01/23/18 05:00 Pulse Rate 85 01/23/18 05:00 Respiratory Rate 18 01/23/18 05:00 Blood Pressure 142/71 01/23/18 05:00 O2 Sat by Pulse Oximetry (%) 98 01/22/18 21:00 Labs: CBC, BMP 01/23/18 06:00 01/23/18 06:00 Discharge Summary Reason For Visit: VENOUS STATSIS DERMATITIS OF RIGHT LOWER EXTREMITY Current Active Problems Abdominal pain (Acute) COPD (chronic obstructive pulmonary disease) (Acute) CVA (cerebral vascular accident) (Acute) Cholelithiasis (Acute) Diabetes (Acute) Elevated INR (Acute) Venous stasis dermatitis of right lower extremity (Acute) Venous stasis ulcer (Acute) - Instructions Diet, Activity, Other Instructions: MRI/MRCP as outpatient - Home Medications Comprehensive Discharge Medication List: Ambulatory Orders Coumadin 10 mg PO DAILY 12/28/14 Linzess 145 mcg PO DAILY 12/28/14 Norvasc - 10 mg PO DAILY 12/28/14 Omeprazole 40 mg PO DAILY 12/28/14 Proair Hfa - 108 mcg IH PRN PRN 12/28/14 SYMBICORT 160/4.5mcg - 160 mcg IH BID 12/28/14 Zocor 40 mg PO DAILY 12/28/14 Zyrtec - 10 mg PO HS 12/28/14 Furosemide [Lasix] 20 mg PO Q2D 08/28/16 Collagenase Clostridium Hist. [Santyl] 1 applic TP DAILY #90 oint...g. 10/05/17 Esomeprazole Magnesium [Nexium 24Hr] 40 mg PO DAILY 01/18/18 Glyburide 2.5 mg PO BID 01/18/18 Polyethylene Glycol 3350 [Miralax (For Daily Use) -] 17 gm PO DAILY PRN Sitagliptin Phosphate [Januvia -] 100 mg PO DAILY@0700 01/18/18
[2018-01-23] MEDS: PANTOPRAZOLE 40 MG TABLET (FP) PO SCH (10:18)
[2018-01-23] MEDS: BUDESONIDE/FORMETEROL FUMARATE 160/4.5 mcg INHALER IH SCH ×2 (10:18→22:34)
[2018-01-23] MEDS: COLLAGENASE CLOSTRIDIUM HIST. 30 GRAMS TUBE TP SCH (10:19)
--- NOTE | 2018-01-23 15:26 | PN ---
Progress Note, Physician Chief Complaint: AWAKE ALERT FEELING BETTER EVENTS AND NOTES REVIEWED - Current Medication List Current Medications: Active Medications Acetaminophen (Tylenol -) 650 mg PO Q4H PRN PRN Reason: PAIN LEVEL 1-5 Last Admin: 01/22/18 20:10 Dose: 650 mg Albuterol/Ipratropium (Duoneb -) 1 amp NEB Q4H PRN PRN Reason: SHORTNESS OF BREATH Last Admin: 01/19/18 19:40 Dose: 1 amp Atorvastatin Calcium (Lipitor -) 20 mg PO HS [facility] Last Admin: 01/22/18 21:02 Dose: 20 mg Budesonide/Formoterol Fumarate (Symbicort 160/4.5mcg -) 2 puff IH BID [facility] Last Admin: 01/23/18 10:18 Dose: 2 puff Collagenase (Santyl -) 1 applic TP DAILY [facility]; Protocol Last Admin: 01/23/18 10:19 Dose: 1 applic Piperacillin Sod/Tazobactam (Sod 3.375 gm/ Dextrose) 50 mls @ 100 mls/hr IVPB Q8H-IV [facility]; Protocol Last Admin: 01/23/18 10:17 Dose: 100 mls/hr Insulin Aspart (Novolog Vial Sliding Scale -) 1 vial SQ ACHS [facility]; Protocol Last Admin: 01/23/18 14:49 Dose: 2 units Insulin Detemir (Levemir Vial) 15 units SQ AM [facility] Last Admin: 01/23/18 06:22 Dose: 15 unit Pantoprazole Sodium (Protonix -) 40 mg PO DAILY [facility] Last Admin: 01/23/18 10:18 Dose: 40 mg Sitagliptin Phosphate (Januvia -) 100 mg PO DAILY@0700 [facility] Last Admin: 01/23/18 06:22 Dose: 100 mg Warfarin Sodium (Coumadin -) 4 mg PO DAILY@1800 [facility] Last Admin: 01/23/18 05:22 Dose: Not Given - Objective Vital Signs: Vital Signs Temperature 98.5 F 01/23/18 15:22 Pulse Rate 91 H 01/23/18 15:22 Respiratory Rate 18 01/23/18 15:22 Blood Pressure 130/73 01/23/18 15:22 O2 Sat by Pulse Oximetry (%) 98 01/22/18 21:00 Constitutional: Yes: Mild Distress Eyes: Yes: WNL HENT: Yes: WNL Neck: Yes: WNL Cardiovascular: Yes: WNL Respiratory: Yes: WNL Gastrointestinal: Yes: WNL Genitourinary: Yes: WNL Musculoskeletal: Yes: Other Extremities: Yes: Deformity Edema: Yes Edema: LLE: 1+ Peripheral Pulses WNL: Yes Integumentary: Yes: Rash, Venous Stasis Changes Wound/Incision: Yes: Dressing Dry and Intact Neurological: Yes: WNL ...Motor Strength: WNL Psychiatric: No: WNL Labs: CBC, BMP 01/23/18 06:00 01/23/18 06:00 INR, PTT INR 1.24 (0.83-1.09) H 01/23/18 06:00 Problem List - Problems (1) History of CVA (cerebrovascular accident) Code(s): Z86.73 - PRSNL HX OF TIA (TIA), AND CEREB INFRC W/O RESID DEFICITS (2) COPD (chronic obstructive pulmonary disease) Code(s): J44.9 - CHRONIC OBSTRUCTIVE PULMONARY DISEASE, UNSPECIFIED (3) Diabetes Code(s): E11.9 - TYPE 2 DIABETES MELLITUS WITHOUT COMPLICATIONS Qualifiers: Diabetes mellitus type: type 2 (4) Venous stasis dermatitis of right lower extremity Code(s): I87.2 - VENOUS INSUFFICIENCY (CHRONIC) (PERIPHERAL) (5) Venous stasis ulcer Code(s): I83.009 - VARICOSE VEINS OF UNSP LOWER EXTREMITY W ULCER OF UNSP SITE; L97.909 - NON-PRS CHRONIC ULC UNSP PRT OF UNSP LOW LEG W UNSP SEVERITY Qualifiers: Venous stasis ulcer site: unspecified site Varicose vein presence: with varicose veins Non-pressure ulcer stage: unspecified non-pressure ulcer stage Qualified Code(s): I83.009 - Varicose veins of unspecified lower extremity with ulcer of unspecified site; L97.909 - Non-pressure chronic ulcer of unspecified part of unspecified lower leg with unspecified severity Assessment/Plan IV ABX PER ID VASC SX EVAL WOUND CARE LOVENOX SQ BID COUMADIN BRIDGING INR CHECK OOB TO CHAIR SSI/ADA/BGM
[2018-01-23] MEDS: ENOXAPARIN NA (PORCINE) 80 MG/0.8 ML DISP.SYRIN SQ SCH ×2 (17:29→21:55)
[2018-01-23] MEDS: LISINOPRIL 10 MG TABLET (FP) PO SCH (17:32)
[2018-01-23] MEDS: ATORVASTATIN CA 20 MG TABLET (FP) PO SCH (21:55)
--- NOTE | 2018-01-23 23:58 | PN ---
Progress Note (short form) - Note Progress Note: Vascular Surgery Pt seen and examined RLE looks much better. Cellulitis resolving Spoke to bedside Cont present care, pt to come back to wound care clinic once DC William peña DO
--- NOTE | 2018-01-24 00:32 | CONSULT ---
Consult Consult Specialty:: endocrine Referred by:: dr.saba ventura Reason for Consultation:: diabetes mellitus - History of Present Illness Chief Complaint: high sugars and infection leg History of Present Illness: 77-year-old female history of hypertension, diabetes, hyperlipidemia, coronary disease, stroke on coumadin , chronic right lower extremity wound sent in from wound clinic for cellulitis. The patient denies any worsening pain but does report that there is significant redness to the area. Reports subjective fevers at home. Patient states sugars usually controlled till this infection started to make them go higher,she usually takes pills and is worried about future of her control. she denies,blurred vision,nausea or vomiting. 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 Cardio/Vascular: Yes: HTN, Hyperlipdemia ...: No Endocrine: Yes: Diabetes Mellitus - Alcohol/Substance Use Hx Alcohol Use: No - Smoking History Smoking history: Former smoker Have you smoked in the past 12 months: No If you are a former smoker, when did you quit?: 14yrs ago Home Medications - Allergies Allergies/Adverse Reactions: Allergies Allergy/AdvReac Type Severity Reaction Status Date / Time No Known Allergies Allergy Verified 01/18/18 13:47 - Home Medications Home Medications: Ambulatory Orders Coumadin 10 mg PO DAILY 12/28/14 Linzess 145 mcg PO DAILY 12/28/14 Norvasc - 10 mg PO DAILY 12/28/14 Omeprazole 40 mg PO DAILY 12/28/14 Proair Hfa - 108 mcg IH PRN PRN 12/28/14 SYMBICORT 160/4.5mcg - 160 mcg IH BID 12/28/14 Zocor 40 mg PO DAILY 12/28/14 Zyrtec - 10 mg PO HS 12/28/14 Furosemide [Lasix] 20 mg PO Q2D 08/28/16 Collagenase Clostridium Hist. [Santyl] 1 applic TP DAILY #90 oint...g. 10/05/17 Esomeprazole Magnesium [Nexium 24Hr] 40 mg PO DAILY 01/18/18 Glyburide 2.5 mg PO BID 01/18/18 Polyethylene Glycol 3350 [Miralax 119 gm Btl -] 17 gm PO DAILY PRN 01/18/18 Sitagliptin Phosphate [Januvia -] 100 mg PO DAILY@0700 01/18/18 Acetaminophen [Tylenol .Regular Strength -] 650 mg PO Q4H PRN tablet 01/23/18 Albuterol 2.5/Ipratropium 0.5 [Duoneb -] 1 amp NEB Q4H PRN amp 01/23/18 Insulin Detemir [Levemir Flextouch] 100 unit SQ DAILY #4 insuln.pen 01/23/18 Warfarin Na [Coumadin -] 4 mg PO DAILY@1800 tablet 01/23/18 Review of Systems - Review of Systems Constitutional: reports: Weakness Eyes: reports: No Symptoms HENT: reports: No Symptoms Neck: reports: No Symptoms Cardiovascular: reports: No Symptoms Respiratory: reports: Exercise Intolerance Gastrointestinal: reports: No Symptoms Musculoskeletal: reports: Decreased ROM, Muscle Cramps Integumentary: reports: No Symptoms Neurological: reports: Numbness, Weakness Endocrine: reports: No Symptoms Physical Exam Vital Signs: Vital Signs Temperature 98.3 F 01/23/18 21:53 Pulse Rate 84 01/23/18 21:53 Respiratory Rate 18 01/23/18 21:53 Blood Pressure 137/66 01/23/18 21:53 O2 Sat by Pulse Oximetry (%) 98 01/22/18 21:00 Constitutional: Yes: Calm Eyes: Yes: EOM Intact HENT: Yes: Normocephalic Neck: Yes: Trachea Midline Cardiovascular: Yes: Regular Rate and Rhythm Respiratory: Yes: CTA Bilaterally Gastrointestinal: Yes: Normal Bowel Sounds ...Rectal Exam: Yes: Deferred Musculoskeletal: Yes: WNL Extremities: Yes: WNL Edema: No Wound/Incision: Yes: Well Approximated, Dressing Dry and Intact Neurological: Yes: Alert, Oriented Labs: CBC, BMP 01/23/18 06:00 01/23/18 06:00 Problem List - Problems (1) Abdominal pain Code(s): R10.9 - UNSPECIFIED ABDOMINAL PAIN (2) COPD (chronic obstructive pulmonary disease) Code(s): J44.9 - CHRONIC OBSTRUCTIVE PULMONARY DISEASE, UNSPECIFIED (3) Diabetes Code(s): E11.9 - TYPE 2 DIABETES MELLITUS WITHOUT COMPLICATIONS Qualifiers: Diabetes mellitus type: type 2 (4) Venous stasis dermatitis of right lower extremity Code(s): I87.2 - VENOUS INSUFFICIENCY (CHRONIC) (PERIPHERAL) Assessment/Plan Current Active Problems Abdominal pain (Acute) COPD (chronic obstructive pulmonary disease) (Acute) CVA (cerebral vascular accident) (Acute) Cholelithiasis (Acute) Diabetes (Acute) Elevated INR (Acute) History of CVA (cerebrovascular accident) (Acute) Venous stasis dermatitis of right lower extremity (Acute) Venous stasis ulcer (Acute) Abnormal Lab Results 01/23/18 01/23/18 01/23/18 06:00 06:00 06:00 Eosinophils % 9.0 H PT with INR 14.00 H INR 1.24 H Anion Gap 6 L Random Glucose 148 H AST 14 L Laboratory Results - last 24 hr 01/23/18 01/23/18 01/23/18 05:55 06:00 06:00 WBC 6.4 RBC 4.65 Hgb 13.4 Hct 41.5 MCV 89.1 MCH 28.9 MCHC 32.4 RDW 14.9 Plt Count 250 MPV 9.0 Absolute Neuts (auto) 3.3 Neutrophils % 51.4 Lymphocytes % 31.7 D Monocytes % 6.5 Eosinophils % 9.0 H Basophils % 1.4 Nucleated RBC % 0 PT with INR INR Sodium 140 Potassium 4.4 Chloride 106 Carbon Dioxide 28 Anion Gap 6 L BUN 18 Creatinine 0.7 Creat Clearance w eGFR > 60 POC Glucometer 162 Random Glucose 148 H Calcium 8.5 Total Bilirubin 0.6 AST 14 L ALT 22 Alkaline Phosphatase 75 Total Protein 7.2 Albumin 3.4 01/23/18 01/23/18 01/23/18 06:00 12:06 17:14 WBC RBC Hgb Hct MCV MCH MCHC RDW Plt Count MPV Absolute Neuts (auto) Neutrophils % Lymphocytes % Monocytes % Eosinophils % Basophils % Nucleated RBC % PT with INR 14.00 H INR 1.24 H Sodium Potassium Chloride Carbon Dioxide Anion Gap BUN Creatinine Creat Clearance w eGFR POC Glucometer 233 174 Random Glucose Calcium Total Bilirubin AST ALT Alkaline Phosphatase Total Protein Albumin 01/23/18 20:47 WBC RBC Hgb Hct MCV MCH MCHC RDW Plt Count MPV Absolute Neuts (auto) Neutrophils % Lymphocytes % Monocytes % Eosinophils % Basophils % Nucleated RBC % PT with INR INR Sodium Potassium Chloride Carbon Dioxide Anion Gap BUN Creatinine Creat Clearance w eGFR POC Glucometer 218 Random Glucose Calcium Total Bilirubin AST ALT Alkaline Phosphatase Total Protein Albumin Laboratory Tests 01/22/18 01/22/18 01/22/18 06:55 10:59 16:31 POC Glucometer 154 210 164 01/22/18 20:44 POC Glucometer 284 plan: continue januvia 100mg daily continue levemir 15 units daily bgm achs will need follow up as outpatient diet nutrtion evaluation hba1c lipid panel
[2018-01-24] MEDS ORDERED: PIPERACILLIN/TAZOBACTAM 3.375 GM VIAL IVPB ONE ×3 (01:03→16:48)
[2018-01-24] MEDS ORDERED: DEXTROSE 5%-WATER - 50 ML IVPB ONE ×3 (01:03→16:48)
[2018-01-24] MEDS: PIPERACILLIN/TAZOB 3.375 GM 3.375 GM in DEXTROSE 5%-WATER - 50 ML IVPB SCH ×3 (01:13→17:13)
[2018-01-24] MEDS: sitaGLIPtin PHOSPHATE 100 MG TABLET (FP) PO SCH (06:26)
[2018-01-24] MEDS: INSULIN SLIDING SCALE (NOVOLOG) 1 VIAL SQ SCH ×4 (06:27→22:11)
[2018-01-24] MEDS: INSULIN (LEVEMIR) 100 UNITS/ML UNITS SQ SCH (06:27)
[2018-01-24 07:18] LABS: HEMATOCRIT 39.4 % (32.4-45.2); HEMOGLOBIN 12.9 GM/dL (10.7-15.3); MCH 29.1 pg (25.7-33.7); MCHC 32.8 g/dl (32.0-36.0); MEAN PLT VOLUME 9.5 fl (7.5-11.1); PLATELET COUNT 238 K/MM3 (134-434); RBC 4.43 M/mm3 (3.60-5.2); RDW 14.7 % (11.6-15.6)
[2018-01-24 07:33] LABS: ANION GAP 10 MMOL/L (8-16); BLOOD UREA NITROGEN 19 mg/dL (7-18); CALCIUM 8.9 mg/dL (8.5-10.1); CHLORIDE 106 mmol/L (98-107); CO2 25 mmol/L (21-32); CREATININE 0.5 mg/dL (0.55-1.3); GLUCOSE,RANDOM 173 mg/dL (74-106); POTASSIUM 4.4 mmol/L (3.5-5.1); SODIUM 141 mmol/L (136-145)
[2018-01-24 08:49] LABS: INR 1.22 (0.83-1.09); PROTHROMBIN TIME (PATIENT) 13.8 SEC (9.7-13.0)
[2018-01-24] MEDS ORDERED: PT OWN MED DRAWER 7, Y5N ONE (09:37)
[2018-01-24] MEDS: ENOXAPARIN NA (PORCINE) 80 MG/0.8 ML DISP.SYRIN SQ SCH ×2 (10:22→22:11)
[2018-01-24] MEDS: LISINOPRIL 10 MG TABLET (FP) PO SCH (10:22)
[2018-01-24] MEDS: PANTOPRAZOLE 40 MG TABLET (FP) PO SCH (10:22)
[2018-01-24] MEDS: BUDESONIDE/FORMETEROL FUMARATE 160/4.5 mcg INHALER IH SCH ×2 (10:23→22:15)
[2018-01-24] MEDS: COLLAGENASE CLOSTRIDIUM HIST. 30 GRAMS TUBE TP SCH (10:23)
[2018-01-24] MEDS ORDERED: WARFARIN NA 10 MG TABLET (FP) PO SCH (18:00)
[2018-01-24] MEDS ORDERED: INSULIN (NOVOLOG) ASPART 100 UNITS/ML 10ML VIAL ONE (21:01)
[2018-01-24] MEDS: ATORVASTATIN CA 20 MG TABLET (FP) PO SCH (22:11)
--- NOTE | 2018-01-24 23:12 | PN ---
Progress Note, Physician Chief Complaint: AWAKE ALERT NAD - Current Medication List Current Medications: Active Medications Acetaminophen (Tylenol -) 650 mg PO Q4H PRN PRN Reason: PAIN LEVEL 1-5 Last Admin: 01/22/18 20:10 Dose: 650 mg Albuterol/Ipratropium (Duoneb -) 1 amp NEB Q4H PRN PRN Reason: SHORTNESS OF BREATH Last Admin: 01/19/18 19:40 Dose: 1 amp Atorvastatin Calcium (Lipitor -) 20 mg PO HS [facility] Last Admin: 01/24/18 22:11 Dose: 20 mg Budesonide/Formoterol Fumarate (Symbicort 160/4.5mcg -) 2 puff IH BID [facility] Last Admin: 01/24/18 22:15 Dose: 2 puff Collagenase (Santyl -) 1 applic TP DAILY [facility]; Protocol Last Admin: 01/24/18 10:23 Dose: 1 applic Enoxaparin Sodium (Lovenox -) 80 mg SQ BID [facility] Last Admin: 01/24/18 22:11 Dose: 80 mg Piperacillin Sod/Tazobactam (Sod 3.375 gm/ Dextrose) 50 mls @ 100 mls/hr IVPB Q8H-IV [facility]; Protocol Last Admin: 01/24/18 17:13 Dose: 100 mls/hr Insulin Aspart (Novolog Vial Sliding Scale -) 1 vial SQ ACHS [facility]; Protocol Last Admin: 01/24/18 22:11 Dose: 2 units Insulin Detemir (Levemir Vial) 15 units SQ AM [facility] Last Admin: 01/24/18 06:27 Dose: 15 unit Lisinopril (Prinivil) 10 mg PO DAILY [facility] Last Admin: 01/24/18 10:22 Dose: 10 mg Pantoprazole Sodium (Protonix -) 40 mg PO DAILY [facility] Last Admin: 01/24/18 10:22 Dose: 40 mg Sitagliptin Phosphate (Januvia -) 100 mg PO DAILY@0700 [place] Last Admin: 01/24/18 06:26 Dose: 100 mg Warfarin Sodium (Coumadin -) 10 mg PO DAILY@1800 [facility] Last Admin: 01/24/18 17:13 Dose: 10 mg - Objective Vital Signs: Vital Signs Temperature 98.1 F 01/24/18 22:00 Pulse Rate 85 01/24/18 22:00 Respiratory Rate 18 01/24/18 22:00 Blood Pressure 124/84 01/24/18 22:00 O2 Sat by Pulse Oximetry (%) 98 01/22/18 21:00 Constitutional: Yes: No Distress Eyes: Yes: WNL HENT: Yes: WNL Neck: Yes: WNL Cardiovascular: Yes: WNL Respiratory: Yes: WNL Gastrointestinal: Yes: WNL Genitourinary: Yes: WNL Musculoskeletal: Yes: Muscle Weakness Extremities: Yes: Erythema Edema: Yes Edema: LLE: 1+, RLE: 1+ Peripheral Pulses WNL: Yes Integumentary: Yes: Pressure Ulcer, Rash, Venous Stasis Changes Wound/Incision: Yes: Dressing Dry and Intact Neurological: Yes: WNL ...Motor Strength: WNL Psychiatric: Yes: WNL Labs: CBC, BMP 01/24/18 06:00 01/24/18 06:00 INR, PTT INR 1.22 (0.83-1.09) H 01/24/18 06:00 Problem List - Problems (1) History of CVA (cerebrovascular accident) Code(s): Z86.73 - PRSNL HX OF TIA (TIA), AND CEREB INFRC W/O RESID DEFICITS (2) COPD (chronic obstructive pulmonary disease) Code(s): J44.9 - CHRONIC OBSTRUCTIVE PULMONARY DISEASE, UNSPECIFIED (3) Diabetes Code(s): E11.9 - TYPE 2 DIABETES MELLITUS WITHOUT COMPLICATIONS Qualifiers: Diabetes mellitus type: type 2 (4) Venous stasis dermatitis of right lower extremity Code(s): I87.2 - VENOUS INSUFFICIENCY (CHRONIC) (PERIPHERAL) (5) Venous stasis ulcer Code(s): I83.009 - VARICOSE VEINS OF UNSP LOWER EXTREMITY W ULCER OF UNSP SITE; L97.909 - NON-PRS CHRONIC ULC UNSP PRT OF UNSP LOW LEG W UNSP SEVERITY Qualifiers: Venous stasis ulcer site: unspecified site Varicose vein presence: with varicose veins Non-pressure ulcer stage: unspecified non-pressure ulcer stage Qualified Code(s): I83.009 - Varicose veins of unspecified lower extremity with ulcer of unspecified site; L97.909 - Non-pressure chronic ulcer of unspecified part of unspecified lower leg with unspecified severity Assessment/Plan IV ABX PER ID VASC SX EVAL WOUND CARE LOVENOX SQ BID COUMADIN BRIDGING INR CHECK OOB TO CHAIR SSI/ADA/BGM
[2018-01-25] MEDS ORDERED: PIPERACILLIN/TAZOBACTAM 3.375 GM VIAL IVPB ONE ×2 (01:31→09:03)
[2018-01-25] MEDS: PIPERACILLIN/TAZOB 3.375 GM 3.375 GM in DEXTROSE 5%-WATER - 50 ML IVPB SCH ×2 (01:43→10:44)
[2018-01-25] MEDS: INSULIN SLIDING SCALE (NOVOLOG) 1 VIAL SQ SCH ×4 (06:36→21:45)
[2018-01-25] MEDS: sitaGLIPtin PHOSPHATE 100 MG TABLET (FP) PO SCH (06:36)
[2018-01-25] MEDS: INSULIN (LEVEMIR) 100 UNITS/ML UNITS SQ SCH (06:37)
[2018-01-25 07:54] LABS: INR 1.18 (0.83-1.09); PROTHROMBIN TIME (PATIENT) 13.3 SEC (9.7-13.0)
[2018-01-25] MEDS ORDERED: DEXTROSE 5%-WATER - 50 ML IVPB ONE (09:03)
[2018-01-25] MEDS: ENOXAPARIN NA (PORCINE) 80 MG/0.8 ML DISP.SYRIN SQ SCH ×2 (10:42→21:26)
[2018-01-25] MEDS: PANTOPRAZOLE 40 MG TABLET (FP) PO SCH (10:43)
[2018-01-25] MEDS: ACETAMINOPHEN 325 MG TABLET (FP) PO PRN ×2 (10:43→21:25)
[2018-01-25] MEDS: LISINOPRIL 10 MG TABLET (FP) PO SCH (10:43)
[2018-01-25] MEDS: BUDESONIDE/FORMETEROL FUMARATE 160/4.5 mcg INHALER IH SCH ×2 (10:44→21:32)
[2018-01-25] MEDS: COLLAGENASE CLOSTRIDIUM HIST. 30 GRAMS TUBE TP SCH (10:44)
--- NOTE | 2018-01-25 14:40 | DS ---
Physical Examination Vital Signs: Vital Signs Temperature 98.4 F 01/25/18 10:00 Pulse Rate 95 H 01/25/18 10:00 Respiratory Rate 18 01/25/18 10:00 Blood Pressure 135/66 01/25/18 10:00 O2 Sat by Pulse Oximetry (%) 97 01/24/18 21:00 Findings/Remarks: C/O FOOT PAIN READY OR DISCHARGE Constitutional: Yes: Mild Distress Eyes: Yes: WNL HENT: Yes: WNL Neck: Yes: WNL Cardiovascular: Yes: WNL Respiratory: Yes: WNL Gastrointestinal: Yes: WNL Renal/: Yes: WNL Musculoskeletal: Yes: Muscle Pain Extremities: Yes: Deformity, Erythema Edema: Yes Edema: LLE: 1+, RLE: 1+ Peripheral Pulses WNL: Yes Integumentary: Yes: Pressure Ulcer, Rash, Venous Stasis Changes Wound/Incision: Yes: Dressing Dry and Intact Neurological: Yes: Pre-Existing Deficit ...Motor Strength: LLE, RLE Psychiatric: Yes: WNL Labs: CBC, BMP 01/24/18 06:00 01/24/18 06:00 Discharge Summary Reason For Visit: VENOUS STATSIS DERMATITIS OF RIGHT LOWER EXTREMITY Current Active Problems Abdominal pain (Acute) COPD (chronic obstructive pulmonary disease) (Acute) CVA (cerebral vascular accident) (Acute) Cholelithiasis (Acute) Diabetes (Acute) Elevated INR (Acute) History of CVA (cerebrovascular accident) (Acute) Venous stasis dermatitis of right lower extremity (Acute) Venous stasis ulcer (Acute) Procedures: Principal: SONO/XRAYS Hospital Course: ADMITTED FOR IV ABX AND WOUND CARE FOR FOOT/LEG ULCERS SKIN CARE, TOLERATED WELL Condition: Stable - Instructions Diet, Activity, Other Instructions: MRI/MRCP as outpatient WILL NEED LOVENOX 80MG BID RESTART COUMADIN 15MG HS AND THEN CHECK INR WITH PMD SundayJanuary WITH YOUR DOCTOR HOME CARE SERVICE Disposition: [facility] FACILITY - Home Medications Comprehensive Discharge Medication List: Ambulatory Orders Coumadin 10 mg PO DAILY 12/28/14 Linzess 145 mcg PO DAILY 12/28/14 Norvasc - 10 mg PO DAILY 12/28/14 Omeprazole 40 mg PO DAILY 12/28/14 Proair Hfa - 108 mcg IH PRN PRN 12/28/14 SYMBICORT 160/4.5mcg - 160 mcg IH BID 12/28/14 Zocor 40 mg PO DAILY 12/28/14 Zyrtec - 10 mg PO HS 12/28/14 Furosemide [Lasix] 20 mg PO Q2D 08/28/16 Collagenase Clostridium Hist. [Santyl] 1 applic TP DAILY #90 oint...g. 10/05/17 Esomeprazole Magnesium [Nexium 24Hr] 40 mg PO DAILY 01/18/18 Polyethylene Glycol 3350 [Miralax 119 gm Btl -] 17 gm PO DAILY PRN 01/18/18 Sitagliptin Phosphate [Januvia -] 100 mg PO DAILY@0700 01/18/18 Acetaminophen [Tylenol .Regular Strength -] 650 mg PO Q4H PRN tablet 01/23/18 Albuterol 2.5/Ipratropium 0.5 [Duoneb -] 1 amp NEB Q4H PRN amp 01/23/18 Insulin Detemir [Levemir Flextouch] 100 unit SQ DAILY #4 insuln.pen 01/23/18 Warfarin Na [Coumadin -] 4 mg PO DAILY@1800 tablet 01/23/18 Budesonide/Formeterol Fumarate [SYMBICORT 160/4.5mcg -] 2 puff IH BID inhaler 01/25/18 Collagenase Clostridium Hist. [Santyl -] 1 applic TP DAILY tube 01/25/18 Enoxaparin [Lovenox -] 80 mg SQ BID #20 disp.syrin 01/25/18 Lisinopril [Prinivil] 10 mg PO DAILY #30 tablet 01/25/18 Pantoprazole Sodium [Protonix -] 40 mg PO DAILY tablet.ec 01/25/18 Sitagliptin Phosphate [Januvia -] 100 mg PO DAILY@0700 #30 ud 01/25/18 Warfarin Na [Coumadin -] 10 mg PO DAILY@1800 tablet 01/25/18
[2018-01-25] MEDS: WARFARIN NA 10 MG TABLET (FP) PO SCH (18:07)
[2018-01-25] MEDS: ATORVASTATIN CA 20 MG TABLET (FP) PO SCH (21:26)
[2018-01-26] MEDS: INSULIN SLIDING SCALE (NOVOLOG) 1 VIAL SQ SCH ×4 (06:54→22:26)
[2018-01-26] MEDS: sitaGLIPtin PHOSPHATE 100 MG TABLET (FP) PO SCH (06:55)
[2018-01-26] MEDS: INSULIN (LEVEMIR) 100 UNITS/ML UNITS SQ SCH (06:55)
[2018-01-26 09:21] LABS: INR 1.47 (0.83-1.09); PROTHROMBIN TIME (PATIENT) 17.4 SEC (9.7-13.0)
[2018-01-26] MEDS: ENOXAPARIN NA (PORCINE) 80 MG/0.8 ML DISP.SYRIN SQ SCH ×2 (10:57→22:26)
[2018-01-26] MEDS: LISINOPRIL 10 MG TABLET (FP) PO SCH (10:57)
[2018-01-26] MEDS: COLLAGENASE CLOSTRIDIUM HIST. 30 GRAMS TUBE TP SCH (10:57)
[2018-01-26] MEDS: PANTOPRAZOLE 40 MG TABLET (FP) PO SCH (10:57)
[2018-01-26] MEDS: BUDESONIDE/FORMETEROL FUMARATE 160/4.5 mcg INHALER IH SCH ×2 (11:01→22:54)
[2018-01-26] MEDS: ACETAMINOPHEN 325 MG TABLET (FP) PO PRN (11:07)
--- NOTE | 2018-01-26 11:20 | DS ---
Physical Examination Vital Signs: Vital Signs Temperature 97.7 F 01/26/18 05:40 Pulse Rate 76 01/26/18 05:40 Respiratory Rate 20 01/26/18 05:40 Blood Pressure 140/84 01/26/18 05:40 O2 Sat by Pulse Oximetry (%) 99 01/25/18 21:00 Cardiovascular: Yes: S1, S2 Respiratory: Yes: Regular, CTA Bilaterally Gastrointestinal: Yes: Normal Bowel Sounds, Soft Extremities: Yes: Erythema, Other (venous stasis changes) Labs: CBC, BMP 01/24/18 06:00 01/24/18 06:00 Discharge Summary Reason For Visit: VENOUS STATSIS DERMATITIS OF RIGHT LOWER EXTREMITY Current Active Problems Abdominal pain (Acute) COPD (chronic obstructive pulmonary disease) (Acute) CVA (cerebral vascular accident) (Acute) Cholelithiasis (Acute) Diabetes (Acute) Elevated INR (Acute) History of CVA (cerebrovascular accident) (Acute) Venous stasis dermatitis of right lower extremity (Acute) Venous stasis ulcer (Acute) Hospital Course: - Problems (1) Venous stasis ulcer Assessment/Plan: iD consult noted--follow up regarding Abx iv abx for cellutlits and wound doppler of legs - no dvt dvt ppx vasc consult noted Microbiology 01/18/18 11:23 Leg - Right Lower Gram Stain - Final 01/18/18 11:23 Leg - Right Lower Wound Culture - Final Staphylococcus Aureus Enterobacter Cloacae check xray to r/o fracture Code(s): I83.009 - VARICOSE VEINS OF UNSP LOWER EXTREMITY W ULCER OF UNSP SITE; L97.909 - NON-PRS CHRONIC ULC UNSP PRT OF UNSP LOW LEG W UNSP SEVERITY Qualifiers: Venous stasis ulcer site: unspecified site Varicose vein presence: with varicose veins Non-pressure ulcer stage: unspecified non-pressure ulcer stage Qualified Code(s): I83.009 - Varicose veins of unspecified lower extremity with ulcer of unspecified site; L97.909 - Non-pressure chronic ulcer of unspecified part of unspecified lower leg with unspecified severity (2) Diabetes Assessment/Plan: bgm hgba1c 10.1 sliding scale levemir and januvia endocrine consult Code(s): E11.9 - TYPE 2 DIABETES MELLITUS WITHOUT COMPLICATIONS Qualifiers: Diabetes mellitus type: type 2 (3) CVA (cerebral vascular accident) Assessment/Plan: on coumadin per daily INR Bridge with Lovenox Code(s): I63.9 - CEREBRAL INFARCTION, UNSPECIFIED (4) COPD (chronic obstructive pulmonary disease) Assessment/Plan: symbicort Code(s): J44.9 - CHRONIC OBSTRUCTIVE PULMONARY DISEASE, UNSPECIFIED Condition: Stable - Instructions Diet, Activity, Other Instructions: MRI/MRCP as outpatient WILL NEED LOVENOX 80MG BID RESTART COUMADIN 15MG HS AND THEN CHECK INR WITH PMD SundayJanuary WITH YOUR DOCTOR HOME CARE SERVICE Disposition: LONG TERM FACILITY - Home Medications Comprehensive Discharge Medication List: Ambulatory Orders Coumadin 10 mg PO DAILY 12/28/14 Linzess 145 mcg PO DAILY 12/28/14 Norvasc - 10 mg PO DAILY 12/28/14 Omeprazole 40 mg PO DAILY 12/28/14 Proair Hfa - 108 mcg IH PRN PRN 12/28/14 SYMBICORT 160/4.5mcg - 160 mcg IH BID 12/28/14 Zocor 40 mg PO DAILY 12/28/14 Zyrtec - 10 mg PO HS 12/28/14 Furosemide [Lasix] 20 mg PO Q2D 08/28/16 Collagenase Clostridium Hist. [Santyl] 1 applic TP DAILY #90 oint...g. 10/05/17 Esomeprazole Magnesium [Nexium 24Hr] 40 mg PO DAILY 01/18/18 Polyethylene Glycol 3350 [Miralax 119 gm Btl -] 17 gm PO DAILY PRN 01/18/18 Sitagliptin Phosphate [Januvia -] 100 mg PO DAILY@0700 01/18/18 Acetaminophen [Tylenol .Regular Strength -] 650 mg PO Q4H PRN tablet 01/23/18 Albuterol 2.5/Ipratropium 0.5 [Duoneb -] 1 amp NEB Q4H PRN amp 01/23/18 Insulin Detemir [Levemir Flextouch] 100 unit SQ DAILY #4 insuln.pen 01/23/18 Warfarin Na [Coumadin -] 4 mg PO DAILY@1800 tablet 01/23/18 Budesonide/Formeterol Fumarate [SYMBICORT 160/4.5mcg -] 2 puff IH BID inhaler 01/25/18 Collagenase Clostridium Hist. [Santyl -] 1 applic TP DAILY tube 01/25/18 Enoxaparin [Lovenox -] 80 mg SQ BID #20 disp.syrin 01/25/18 Lisinopril [Prinivil] 10 mg PO DAILY #30 tablet 01/25/18 Pantoprazole Sodium [Protonix -] 40 mg PO DAILY tablet.ec 01/25/18 Sitagliptin Phosphate [Januvia -] 100 mg PO DAILY@0700 #30 ud 01/25/18 Warfarin Na [Coumadin -] 10 mg PO DAILY@1800 tablet 01/25/18
--- NOTE | 2018-01-26 14:22 | PN ---
Progress Note, Physician History of Present Illness: OOB in chair C/O R ankle pain No c/o fever/ chills Wound c/s MSSA/ Enterobacter - Current Medication List Current Medications: Active Medications Acetaminophen (Tylenol -) 650 mg PO Q4H PRN PRN Reason: PAIN LEVEL 1-5 Last Admin: 01/26/18 11:07 Dose: 650 mg Albuterol/Ipratropium (Duoneb -) 1 amp NEB Q4H PRN PRN Reason: SHORTNESS OF BREATH Last Admin: 01/19/18 19:40 Dose: 1 amp Atorvastatin Calcium (Lipitor -) 20 mg PO HS [facility] Last Admin: 01/25/18 21:26 Dose: 20 mg Budesonide/Formoterol Fumarate (Symbicort 160/4.5mcg -) 2 puff IH BID [facility] Last Admin: 01/26/18 11:01 Dose: 2 puff Collagenase (Santyl -) 1 applic TP DAILY [facility]; Protocol Last Admin: 01/26/18 10:57 Dose: 1 applic Enoxaparin Sodium (Lovenox -) 80 mg SQ BID [facility] Last Admin: 01/26/18 10:57 Dose: 80 mg Insulin Aspart (Novolog Vial Sliding Scale -) 1 vial SQ ACHS [facility]; Protocol Last Admin: 01/26/18 11:02 Dose: Not Given Insulin Detemir (Levemir Vial) 15 units SQ AM [facility] Last Admin: 01/26/18 06:55 Dose: 15 unit Lisinopril (Prinivil) 10 mg PO DAILY [facility] Last Admin: 01/26/18 10:57 Dose: 10 mg Pantoprazole Sodium (Protonix -) 40 mg PO DAILY [facility] Last Admin: 01/26/18 10:57 Dose: 40 mg Sitagliptin Phosphate (Januvia -) 100 mg PO DAILY@0700 [facility] Last Admin: 01/26/18 06:55 Dose: 100 mg Warfarin Sodium (Coumadin -) 15 mg PO DAILY@1800 [facility] Last Admin: 01/25/18 18:07 Dose: 15 mg - Objective Vital Signs: Vital Signs Temperature 98.0 F 01/26/18 10:00 Pulse Rate 83 01/26/18 10:00 Respiratory Rate 18 01/26/18 10:00 Blood Pressure 138/69 01/26/18 10:00 O2 Sat by Pulse Oximetry (%) 99 01/26/18 09:00 Constitutional: Yes: No Distress Cardiovascular: Yes: Regular Rate and Rhythm, S1, S2 Respiratory: Yes: CTA Bilaterally Gastrointestinal: Yes: Normal Bowel Sounds, Soft. No: Tenderness Extremities: Yes: Other (erythema R LE resolved. Ulcers dry. + chronic venous stasis dermatitis) Labs: CBC, BMP 01/24/18 06:00 01/24/18 06:00 INR, PTT INR 1.47 (0.83-1.09) H 01/26/18 06:15 Assessment/Plan Cellulitis/ infected ulcer R LE resolved Diabetes mellitus Substitute levaquin 250mg po qd x 7d Local wound care
[2018-01-26] MEDS: WARFARIN NA 10 MG TABLET (FP) PO SCH (17:48)
[2018-01-26] MEDS: ATORVASTATIN CA 20 MG TABLET (FP) PO SCH (22:26)
[2018-01-27] MEDS: sitaGLIPtin PHOSPHATE 100 MG TABLET (FP) PO SCH (06:16)
[2018-01-27] MEDS: INSULIN SLIDING SCALE (NOVOLOG) 1 VIAL SQ SCH ×3 (06:16→16:19)
[2018-01-27] MEDS: INSULIN (LEVEMIR) 100 UNITS/ML UNITS SQ SCH (06:17)
[2018-01-27] MEDS ORDERED: PT OWN MED DRAWER 7, Y5N ONE ×2 (06:40→08:54)
[2018-01-27] MEDS: ENOXAPARIN NA (PORCINE) 80 MG/0.8 ML DISP.SYRIN SQ SCH (09:35)
[2018-01-27] MEDS: LISINOPRIL 10 MG TABLET (FP) PO SCH (09:35)
[2018-01-27] MEDS: PANTOPRAZOLE 40 MG TABLET (FP) PO SCH (09:35)
[2018-01-27] MEDS: BUDESONIDE/FORMETEROL FUMARATE 160/4.5 mcg INHALER IH SCH (09:35)
[2018-01-27] MEDS: COLLAGENASE CLOSTRIDIUM HIST. 30 GRAMS TUBE TP SCH (09:36)
[2018-01-27 11:06] LABS: INR 2.37 (0.83-1.09); PROTHROMBIN TIME (PATIENT) 28.2 SEC (9.7-13.0)
--- NOTE | 2018-01-27 11:27 | DS ---
Physical Examination Vital Signs: Vital Signs Temperature 98.7 F 01/27/18 10:00 Pulse Rate 88 01/27/18 10:00 Respiratory Rate 18 01/27/18 10:00 Blood Pressure 141/88 01/27/18 10:00 O2 Sat by Pulse Oximetry (%) 94 L 01/27/18 09:00 Cardiovascular: Yes: S1, S2 Respiratory: Yes: Regular, CTA Bilaterally Gastrointestinal: Yes: Normal Bowel Sounds, Soft Labs: CBC, BMP 01/24/18 06:00 01/24/18 06:00 Discharge Summary Reason For Visit: VENOUS STATSIS DERMATITIS OF RIGHT LOWER EXTREMITY Current Active Problems Abdominal pain (Acute) COPD (chronic obstructive pulmonary disease) (Acute) CVA (cerebral vascular accident) (Acute) Cholelithiasis (Acute) Diabetes (Acute) Elevated INR (Acute) History of CVA (cerebrovascular accident) (Acute) Venous stasis dermatitis of right lower extremity (Acute) Venous stasis ulcer (Acute) Hospital Course: Problems (1) Venous stasis ulcer Assessment/Plan: iD consult noted--follow up regarding Abx iv abx for cellutlits and wound--on po levaquin doppler of legs - no dvt dvt ppx vasc consult noted Microbiology 01/18/18 11:23 Leg - Right Lower Gram Stain - Final 01/18/18 11:23 Leg - Right Lower Wound Culture - Final Staphylococcus Aureus Enterobacter Cloacae check xray to r/o fracture Code(s): I83.009 - VARICOSE VEINS OF UNSP LOWER EXTREMITY W ULCER OF UNSP SITE; L97.909 - NON-PRS CHRONIC ULC UNSP PRT OF UNSP LOW LEG W UNSP SEVERITY Qualifiers: Venous stasis ulcer site: unspecified site Varicose vein presence: with varicose veins Non-pressure ulcer stage: unspecified non-pressure ulcer stage Qualified Code(s): I83.009 - Varicose veins of unspecified lower extremity with ulcer of unspecified site; L97.909 - Non-pressure chronic ulcer of unspecified part of unspecified lower leg with unspecified severity (2) Diabetes Assessment/Plan: bgm hgba1c 10.1 sliding scale levemir and januvia endocrine consult Code(s): E11.9 - TYPE 2 DIABETES MELLITUS WITHOUT COMPLICATIONS Qualifiers: Diabetes mellitus type: type 2 (3) CVA (cerebral vascular accident) Assessment/Plan: on coumadin inr 2.4 daily INR Dc Lovenox Code(s): I63.9 - CEREBRAL INFARCTION, UNSPECIFIED (4) COPD (chronic obstructive pulmonary disease) Assessment/Plan: symbicort Code(s): J44.9 - CHRONIC OBSTRUCTIVE PULMONARY DISEASE, UNSPECIFIED Condition: Stable - Instructions Diet, Activity, Other Instructions: MRI/MRCP as outpatient WILL NEED LOVENOX 80MG BID RESTART COUMADIN 6mg HS AND THEN CHECK INR WITH PMD SundayJanuary WITH DR MCGUIRE HOME CARE SERVICE Disposition: [facility]HOME HEALTH CARE - Home Medications Comprehensive Discharge Medication List: Ambulatory Orders Linzess 145 mcg PO DAILY 12/28/14 Proair Hfa - 108 mcg IH PRN PRN 12/28/14 SYMBICORT 160/4.5mcg - 160 mcg IH BID 12/28/14 Zocor 40 mg PO DAILY 12/28/14 Zyrtec - 10 mg PO HS 12/28/14 Furosemide [Lasix] 20 mg PO Q2D 08/28/16 Collagenase Clostridium Hist. [Santyl] 1 applic TP DAILY #90 oint...g. 10/05/17 Polyethylene Glycol 3350 [Miralax 119 gm Btl -] 17 gm PO DAILY PRN 01/18/18 Sitagliptin Phosphate [Januvia -] 100 mg PO DAILY@0700 01/18/18 Acetaminophen [Tylenol .Regular Strength -] 650 mg PO Q4H PRN tablet 01/23/18 Albuterol 2.5/Ipratropium 0.5 [Duoneb -] 1 amp NEB Q4H PRN amp 01/23/18 Insulin Detemir [Levemir Flextouch] 100 unit SQ DAILY #4 insuln.pen 01/23/18 Budesonide/Formeterol Fumarate [SYMBICORT 160/4.5mcg -] 2 puff IH BID inhaler 01/25/18 Collagenase Clostridium Hist. [Santyl -] 1 applic TP DAILY tube 01/25/18 Lisinopril [Prinivil] 10 mg PO DAILY #30 tablet 01/25/18 Pantoprazole Sodium [Protonix -] 40 mg PO DAILY tablet.ec 01/25/18 Sitagliptin Phosphate [Januvia -] 100 mg PO DAILY@0700 #30 ud 01/25/18 Warfarin Na [Coumadin] 6 mg PO DAILY #60 tablet 01/27/18 levoFLOXacin [Levaquin -] 250 mg PO DAILY #7 tablet 01/27/18
[2018-01-27] MEDS ORDERED: WARFARIN NA 3 MG TABLET PO SCH (18:00)
[2018-01-27 19:26] VITALS: BP 130/47; PULSE 93; TEMP 97.8
== END 2018-01-26 08:30 | disposition home health service (06) | DRG 300 ==
LOC: JER 13:41 → JERBED 14:37 → J7W 19:15
PROVIDERS: ADMIT Student in an Organized Health Care Education/Training Program; ATTEND Student in an Organized Health Care Education/Training Program
DX: I83.018 Varicose veins of right lower extremity with ulcer other part of lower leg (principal); L97.818 Non-pressure chronic ulcer of other part of right lower leg with other specified severity; L03.115 Cellulitis of right lower limb; I10 Essential (primary) hypertension; E78.5 Hyperlipidemia, unspecified; I25.10 Atherosclerotic heart disease of native coronary artery without angina pectoris; E11.9 Type 2 diabetes mellitus without complications; T45.515A Adverse effect of anticoagulants, initial encounter; K80.20 Calculus of gallbladder without cholecystitis without obstruction; R79.1 Abnormal coagulation profile; R10.9 Unspecified abdominal pain; J44.9 Chronic obstructive pulmonary disease, unspecified; I83.219 Varicose veins of right lower extremity with both ulcer of unspecified site and inflammation; Z87.891 Personal history of nicotine dependence; Z86.73 Personal history of transient ischemic attack (TIA), and cerebral infarction without residual deficits
CPT/HCPCS: 36415; 71045-TC-FY; 73630-TC-RT-FY; 76705-TC; 80048; 80053; 80061; 81003; 81015; 82803; 82962; 83036; 83605; 83721; 84484; 85025; 85027; 85610; 85730; 87040; 87070; 87086; 87186; 87205; 93005; 93010; 93970-TC; 94640; 97116-GP; 97161-GP; 99284-25; G0463-25; J7030; J7620

== ENCOUNTER 2022-07-15 15:13 | Inpatient (IN) | payer OTHER ==
[2022-07-15 16:13] LABS: BASO % 0.3 % (0-2.0); EOS % 0.5 % (0-4.5); HEMATOCRIT 40.2 % (32.4-45.2); HEMOGLOBIN 13.2 GM/dL (10.7-15.3); LYMPH % 7.1 % (8-40); MCH 29.2 pg (25.7-33.7); MCHC 32.8 g/dl (32.0-36.0); MONO % 4.1 % (3.8-10.2); PLATELET COUNT 211 10^3/uL (134-434); RBC 4.52 M/mm3 (3.60-5.2); RDW 14.7 % (11.6-15.6); WHITE BLOOD COUNT 11.6 K/mm3 (4.0-10.0)
[2022-07-15 16:20] LABS: INR 2.8 (0.83-1.09); PROTHROMBIN TIME (PATIENT) 32.1 SEC (9.7-13.0)
[2022-07-15 16:23] LABS: ACTIVATED PTT 38.8 SECONDS (25.2-36.5)
[2022-07-15 16:33] LABS: ALBUMIN 3.8 g/dl (3.4-5.0); BLOOD UREA NITROGEN 30.5 mg/dL (7-18)
[2022-07-15 16:36] LABS: CREATININE 0.8 mg/dL (0.55-1.3)
[2022-07-15 16:38] LABS: BILIRUBIN,TOTAL 0.6 mg/dL (0.2-1); TOT PROT 7.6 g/dl (6.4-8.2)
[2022-07-15] MEDS ORDERED: morphine CARPU-JECT 2 MG/1 ML DISP.SYRIN IVPUSH ONE (16:50)
[2022-07-15] MEDS ORDERED: LACTATED RINGERS SOLUTION 1000 ML INFUS.BAG IV ONE (16:50)
[2022-07-15] MEDS ORDERED: ACETAMINOPHEN 1000 MG/100 ML BAG IVPB ONE (17:00)
[2022-07-15] MEDS ORDERED: ACETAMINOPHEN INJECTION 100 ML IVPB ONE (17:40)
[2022-07-15] MEDS ORDERED: ALBUTEROL SO4 HFA INHALER IH PRN (17:46)
[2022-07-15] MEDS ORDERED: ACETAMINOPHEN 325 MG TABLET (FP) PO PRN (17:46)
[2022-07-15] MEDS ORDERED: ALBUTEROL SO4 2.5/IPRATROPIUM 0.5 INH SOL 3 ML VIAL.NEB. NEB PRN (17:46)
[2022-07-15 23:44] VITALS: BMI 27.3
[2022-07-16] MEDS: HEPARIN NA (PORCINE) 5,000 UNITS/ML 1ML VIAL SQ SCH ×3 (00:18→21:13)
[2022-07-16] MEDS: LORATADINE 10 MG TABLET PO SCH ×2 (00:18→21:12)
[2022-07-16] MEDS: BUDESONIDE/FORMETEROL FUMARATE 160/4.5 mcg INHALER IH SCH ×3 (00:19→21:13)
[2022-07-16] MEDS: INSULIN SLIDING SCALE (NOVOLOG) 1 VIAL SQ SCH ×3 (06:59→16:35)
[2022-07-16 08:44] LABS: BASO % 0.5 % (0-2.0); EOS % 7.4 % (0-4.5); HEMATOCRIT 35.9 % (32.4-45.2); HEMOGLOBIN 12.3 GM/dL (10.7-15.3); LYMPH % 20.1 % (8-40); MCH 30.3 pg (25.7-33.7); MCHC 34.2 g/dl (32.0-36.0); MEAN CELL VOLUME 88.7 fl (80-96); MEAN PLT VOLUME 9.1 fl (7.5-11.1); MONO % 7.2 % (3.8-10.2); NEUT % 64.8 % (42.8-82.8); PLATELET COUNT 188 10^3/uL (134-434); RBC 4.05 M/mm3 (3.60-5.2); RDW 14.4 % (11.6-15.6); WHITE BLOOD COUNT 7.6 K/mm3 (4.0-10.0)
[2022-07-16 08:59] LABS: CALCIUM 8.5 mg/dL (8.5-10.1)
[2022-07-16 09:00] LABS: BLOOD UREA NITROGEN 23.4 mg/dL (7-18)
[2022-07-16 09:03] LABS: CREATININE 0.6 mg/dL (0.55-1.3)
[2022-07-16 09:12] LABS: ALBUMIN 3.3 g/dl (3.4-5.0)
[2022-07-16 09:17] LABS: BILIRUBIN,TOTAL 0.8 mg/dL (0.2-1); TOT PROT 6.6 g/dl (6.4-8.2)
[2022-07-16] MEDS: PANTOPRAZOLE 40 MG TABLET PO SCH (09:38)
[2022-07-16] MEDS: ATORVASTATIN CA 20 MG TABLET (FP) PO SCH (09:38)
[2022-07-16] MEDS: LISINOPRIL 10 MG TABLET PO SCH (09:38)
[2022-07-16] MEDS ORDERED: INSULIN (NOVOLOG) ASPART 100 UNITS/ML 10ML VIAL ONE (10:17)
[2022-07-16 11:32] LABS: INR 2.72 (0.83-1.09); PROTHROMBIN TIME (PATIENT) 31.2 SEC (9.7-13.0)
[2022-07-16] MEDS: POLYETHYLENE GLYCOL (HEALTHYLAX) 3350 17 GM PACKET PO PRN (15:38)
[2022-07-17] MEDS: INSULIN SLIDING SCALE (NOVOLOG) 1 VIAL SQ SCH ×3 (06:09→17:18)
[2022-07-17 09:11] LABS: BASO % 0.7 % (0-2.0); EOS % 7.1 % (0-4.5); HEMATOCRIT 37.3 % (32.4-45.2); HEMOGLOBIN 12.4 GM/dL (10.7-15.3); MCH 29.6 pg (25.7-33.7); MCHC 33.2 g/dl (32.0-36.0); MEAN CELL VOLUME 89.1 fl (80-96); MEAN PLT VOLUME 9.8 fl (7.5-11.1); MONO % 7.9 % (3.8-10.2); NEUT % 65.3 % (42.8-82.8); PLATELET COUNT 189 10^3/uL (134-434); RBC 4.18 M/mm3 (3.60-5.2); RDW 14.7 % (11.6-15.6); WHITE BLOOD COUNT 8.4 K/mm3 (4.0-10.0)
[2022-07-17 09:21] LABS: INR 1.79 (0.83-1.09); PROTHROMBIN TIME (PATIENT) 20.6 SEC (9.7-13.0)
[2022-07-17] MEDS: ATORVASTATIN CA 20 MG TABLET (FP) PO SCH (09:26)
[2022-07-17] MEDS: HEPARIN NA (PORCINE) 5,000 UNITS/ML 1ML VIAL SQ SCH ×2 (09:26→21:18)
[2022-07-17] MEDS: PANTOPRAZOLE 40 MG TABLET PO SCH (09:26)
[2022-07-17] MEDS: POLYETHYLENE GLYCOL (HEALTHYLAX) 3350 17 GM PACKET PO PRN (09:26)
[2022-07-17] MEDS: LISINOPRIL 10 MG TABLET PO SCH (09:26)
[2022-07-17 09:41] LABS: CALCIUM 8.3 mg/dL (8.5-10.1)
[2022-07-17 09:42] LABS: ALBUMIN 3.2 g/dl (3.4-5.0); BLOOD UREA NITROGEN 29.8 mg/dL (7-18)
[2022-07-17 09:45] LABS: CREATININE 0.9 mg/dL (0.55-1.3)
[2022-07-17 09:47] LABS: TOT PROT 6.6 g/dl (6.4-8.2)
[2022-07-17] MEDS ORDERED: FUROSEMIDE 20 MG TABLET (FP) PO SCH (10:00)
[2022-07-17] MEDS: BUDESONIDE/FORMETEROL FUMARATE 160/4.5 mcg INHALER IH SCH ×2 (10:09→21:20)
[2022-07-17] MEDS ORDERED: INSULIN (NOVOLOG) ASPART 100 UNITS/ML 10ML VIAL ONE (17:05)
[2022-07-17] MEDS ORDERED: KETOROLAC TROMETHAMINE 30 MG/1 ML VIAL IVPUSH PRN (17:27)
[2022-07-17] MEDS ORDERED: DEXTROSE 5%-NORMAL SALINE 1,000 ML IV SCH (19:45)
[2022-07-17] MEDS: LORATADINE 10 MG TABLET PO SCH (21:18)
[2022-07-18] MEDS ORDERED: MELATONIN 5 MG TABLETS PO PRN (00:27)
[2022-07-18] MEDS ORDERED: ACETAMINOPHEN 1000 MG/100 ML BAG IVPB ONE ×2 (00:29→12:51)
[2022-07-18] MEDS: INSULIN SLIDING SCALE (NOVOLOG) 1 VIAL SQ SCH ×3 (08:57→16:30)
[2022-07-18] MEDS: LISINOPRIL 10 MG TABLET PO SCH (09:01)
[2022-07-18] MEDS: HEPARIN NA (PORCINE) 5,000 UNITS/ML 1ML VIAL SQ SCH (09:01)
[2022-07-18] MEDS: ATORVASTATIN CA 20 MG TABLET (FP) PO SCH (09:01)
[2022-07-18] MEDS: PANTOPRAZOLE 40 MG TABLET PO SCH (09:02)
[2022-07-18] MEDS: BUDESONIDE/FORMETEROL FUMARATE 160/4.5 mcg INHALER IH SCH ×2 (09:06→21:44)
[2022-07-18 09:25] LABS: INR 1.37 (0.83-1.09); PROTHROMBIN TIME (PATIENT) 15.8 SEC (9.7-13.0)
[2022-07-18] MEDS ORDERED: ceFAZolin SODIUM 1 GM VIAL ONE ×2 (09:42→11:07)
[2022-07-18] MEDS ORDERED: BUPIVACAINE HCL/PF 0.5% (5MG/ML) 10 ML VIAL ONE (10:27)
[2022-07-18] MEDS ORDERED: MIDAZOLAM HCL 2 MG/2 ML SINGLE DOSE VIAL ONE (10:29)
[2022-07-18] MEDS ORDERED: ONDANSETRON 4 MG/2 ML VIAL ONE (10:29)
[2022-07-18] MEDS ORDERED: PROPOFOL 20 ML ONE (10:29)
[2022-07-18] MEDS ORDERED: TRANEXAMIC ACID 1000 MG/10 ML VIAL ONE ×2 (11:07→12:01)
[2022-07-18] MEDS ORDERED: ceFAZolin SODIUM 1 GM VIAL IVPB ONE (11:10)
[2022-07-18] MEDS ORDERED: VANCOMYCIN 1,000 MG VIAL (RESTRICTED TO ID ONLY) ONE (11:42)
[2022-07-18] MEDS ORDERED: MAG HYDROX/AL HYDROX/SIMETH 30 ML UNIT-DOSE CUP PO PRN ×2 (12:19→12:51)
[2022-07-18] MEDS ORDERED: ONDANSETRON 4 MG/2 ML VIAL IVPUSH PRN ×2 (12:19→12:51)
[2022-07-18] MEDS ORDERED: LACTATED RINGERS SOLUTION 1,000 ML IV SCH (12:45)
[2022-07-18] MEDS ORDERED: ALBUTEROL SO4 2.5/IPRATROPIUM 0.5 INH SOL 3 ML VIAL.NEB. NEB PRN (12:51)
[2022-07-18] MEDS ORDERED: ALBUTEROL SO4 HFA INHALER IH PRN (12:51)
[2022-07-18] MEDS ORDERED: POLYETHYLENE GLYCOL (HEALTHYLAX) 3350 17 GM PACKET PO PRN (12:51)
[2022-07-18] MEDS: DEXTROSE 5%-NORMAL SALINE 1,000 ML IV SCH (13:46)
[2022-07-18] MEDS: CEFAZOLIN SODIUM 2 GM in DEXTROSE 5%-WATER 100 ML IVPB SCH (19:53)
[2022-07-18] MEDS ORDERED: CEFAZOLIN SODIUM 2 GM in DEXTROSE 5%-WATER 100 ML IVPB SCH (20:00)
[2022-07-18] MEDS: MELATONIN 5 MG TABLETS PO PRN (21:42)
[2022-07-18] MEDS: SENNOSIDES/DOCUSATE COMBO (SENNA PLUS) TABLET (UD) PO SCH (21:42)
[2022-07-18] MEDS: LORATADINE 10 MG TABLET PO SCH (21:43)
[2022-07-18] MEDS ORDERED: SENNOSIDES/DOCUSATE COMBO (SENNA PLUS) TABLET (UD) PO SCH (22:00)
[2022-07-19] MEDS: CEFAZOLIN SODIUM 2 GM in DEXTROSE 5%-WATER 100 ML IVPB SCH (01:38)
[2022-07-19] MEDS ORDERED: INSULIN (NOVOLOG) ASPART 100 UNITS/ML 10ML VIAL ONE ×4 (06:45→19:18)
[2022-07-19] MEDS: INSULIN SLIDING SCALE (NOVOLOG) 1 VIAL SQ SCH ×3 (06:51→16:37)
[2022-07-19] MEDS: ASPIRIN 325 MG TABLET PO SCH (07:38)
[2022-07-19] MEDS: oxyCODONE HCL 5 MG TABLET PO PRN ×3 (07:38→21:29)
[2022-07-19] MEDS ORDERED: ASPIRIN 325 MG TABLET PO SCH (08:00)
[2022-07-19 08:49] LABS: HEMATOCRIT 30.6 % (32.4-45.2); HEMOGLOBIN 10.4 GM/dL (10.7-15.3); MCHC 33.9 g/dl (32.0-36.0); MEAN CELL VOLUME 88.5 fl (80-96); MEAN PLT VOLUME 9.5 fl (7.5-11.1); PLATELET COUNT 177 10^3/uL (134-434); RBC 3.46 M/mm3 (3.60-5.2); RDW 14.3 % (11.6-15.6); WHITE BLOOD COUNT 7.5 K/mm3 (4.0-10.0)
[2022-07-19 09:04] LABS: BLOOD UREA NITROGEN 25.7 mg/dL (7-18); CALCIUM 7.8 mg/dL (8.5-10.1)
[2022-07-19 09:05] LABS: CREATININE 0.6 mg/dL (0.55-1.3)
[2022-07-19 09:14] LABS: IRON SERUM 15 ug/dL (50-175); TOTAL IRON BINDING CAPACITY 196 ug/dL (250-450)
[2022-07-19] MEDS: MULTIVITAMINS (DAILY MVI) TABLET (FP) PO SCH (09:16)
[2022-07-19] MEDS: ATORVASTATIN CA 20 MG TABLET (FP) PO SCH (09:16)
[2022-07-19] MEDS: SENNOSIDES/DOCUSATE COMBO (SENNA PLUS) TABLET (UD) PO SCH ×2 (09:16→21:22)
[2022-07-19] MEDS: LISINOPRIL 10 MG TABLET PO SCH (09:16)
[2022-07-19] MEDS: FUROSEMIDE 20 MG TABLET (FP) PO SCH (09:16)
[2022-07-19] MEDS: PANTOPRAZOLE 40 MG TABLET PO SCH (09:16)
[2022-07-19] MEDS: BUDESONIDE/FORMETEROL FUMARATE 160/4.5 mcg INHALER IH SCH ×2 (09:17→21:23)
[2022-07-19] MEDS ORDERED: MULTIVITAMINS (DAILY MVI) TABLET (FP) PO SCH (10:00)
[2022-07-19] MEDS ORDERED: IRON SUCROSE INJECTION 200 MG in SODIUM CHLORIDE 90 ML IVPB ONE (12:49)
[2022-07-19] MEDS: DEXTROSE 5%-NORMAL SALINE 1,000 ML IV SCH (13:00)
[2022-07-19] MEDS: LORATADINE 10 MG TABLET PO SCH (21:22)
[2022-07-19] MEDS: MELATONIN 5 MG TABLETS PO PRN (21:30)
[2022-07-20] MEDS: DEXTROSE 5%-NORMAL SALINE 1,000 ML IV SCH ×2 (02:36→13:15)
[2022-07-20] MEDS: INSULIN SLIDING SCALE (NOVOLOG) 1 VIAL SQ SCH ×4 (06:41→16:23)
[2022-07-20] MEDS: oxyCODONE HCL 5 MG TABLET PO PRN ×2 (07:50→18:46)
[2022-07-20] MEDS: ASPIRIN 325 MG TABLET PO SCH (07:50)
[2022-07-20] MEDS: ATORVASTATIN CA 20 MG TABLET (FP) PO SCH (09:55)
[2022-07-20] MEDS: FERROUS SO4 325 MG TABLET (FP) PO SCH (09:55)
[2022-07-20] MEDS: PANTOPRAZOLE 40 MG TABLET PO SCH (09:55)
[2022-07-20] MEDS: MULTIVITAMINS (DAILY MVI) TABLET (FP) PO SCH (09:55)
[2022-07-20] MEDS: BUDESONIDE/FORMETEROL FUMARATE 160/4.5 mcg INHALER IH SCH ×2 (09:56→21:17)
[2022-07-20] MEDS: LISINOPRIL 10 MG TABLET PO SCH (09:56)
[2022-07-20] MEDS: SENNOSIDES/DOCUSATE COMBO (SENNA PLUS) TABLET (UD) PO SCH ×2 (09:56→21:10)
[2022-07-20] MEDS: ENOXAPARIN NA (PORCINE) 80 MG/0.8 ML DISP.SYRIN SQ SCH ×2 (10:37→21:11)
[2022-07-20] MEDS: WARFARIN NA 3 MG TABLET PO SCH (18:46)
[2022-07-20] MEDS: ACETAMINOPHEN 325 MG TABLET (FP) PO PRN (20:29)
[2022-07-20] MEDS: LORATADINE 10 MG TABLET PO SCH (21:10)
[2022-07-20] MEDS: MELATONIN 5 MG TABLETS PO PRN (21:10)
[2022-07-21] MEDS: INSULIN SLIDING SCALE (NOVOLOG) 1 VIAL SQ SCH ×3 (06:58→17:07)
[2022-07-21] MEDS: oxyCODONE HCL 5 MG TABLET PO PRN (07:00)
[2022-07-21] MEDS: ASPIRIN 325 MG TABLET PO SCH (08:54)
[2022-07-21 09:21] LABS: MCH 29.7 pg (25.7-33.7); MCHC 33.4 g/dl (32.0-36.0); MEAN CELL VOLUME 88.9 fl (80-96); MEAN PLT VOLUME 9.4 fl (7.5-11.1); PLATELET COUNT 228 10^3/uL (134-434); RBC 3.38 M/mm3 (3.60-5.2); RDW 14.2 % (11.6-15.6); WHITE BLOOD COUNT 7.7 K/mm3 (4.0-10.0)
[2022-07-21 09:51] LABS: INR 1.21 (0.83-1.09)
[2022-07-21 09:59] LABS: CALCIUM 8.1 mg/dL (8.5-10.1)
[2022-07-21 10:00] LABS: BLOOD UREA NITROGEN 33.6 mg/dL (7-18)
[2022-07-21 10:03] VITALS: RESP 18
[2022-07-21 10:03] LABS: CREATININE 0.8 mg/dL (0.55-1.3)
[2022-07-21] MEDS: MULTIVITAMINS (DAILY MVI) TABLET (FP) PO SCH (11:09)
[2022-07-21] MEDS: FERROUS SO4 325 MG TABLET (FP) PO SCH (11:09)
[2022-07-21] MEDS: LISINOPRIL 10 MG TABLET PO SCH (11:10)
[2022-07-21] MEDS: ATORVASTATIN CA 20 MG TABLET (FP) PO SCH (11:11)
[2022-07-21] MEDS: FUROSEMIDE 20 MG TABLET (FP) PO SCH (11:11)
[2022-07-21] MEDS: SENNOSIDES/DOCUSATE COMBO (SENNA PLUS) TABLET (UD) PO SCH (11:12)
[2022-07-21] MEDS: PANTOPRAZOLE 40 MG TABLET PO SCH (11:13)
[2022-07-21] MEDS: ENOXAPARIN NA (PORCINE) 80 MG/0.8 ML DISP.SYRIN SQ SCH (11:35)
[2022-07-21] MEDS: BUDESONIDE/FORMETEROL FUMARATE 160/4.5 mcg INHALER IH SCH (11:42)
[2022-07-21 14:49] VITALS: BP 108/54; PULSE 97; TEMP 97.8
[2022-07-21] MEDS: ACETAMINOPHEN 325 MG TABLET (FP) PO PRN (15:18)
[2022-07-21] MEDS: DEXTROSE 5%-NORMAL SALINE 1,000 ML IV SCH (17:05)
[2022-07-21] MEDS: WARFARIN NA 3 MG TABLET PO SCH (17:41)
== END 2022-07-21 18:28 | DRG 522 ==
LOC: JER 15:13 → JERBED 17:11 → J6S 23:37
PROVIDERS: ADMIT Internal Medicine; ATTEND Family Medicine
PROC: 0SRR0JZ Replacement of Right Hip Joint, Femoral Surface with Synthetic Substitute, Open Approach (ICD-10-PCS; principal; 2022-07-18 10:30)
DX: S72.001A Fracture of unspecified part of neck of right femur, initial encounter for closed fracture (principal); I10 Essential (primary) hypertension; J44.9 Chronic obstructive pulmonary disease, unspecified; E11.9 Type 2 diabetes mellitus without complications; E78.5 Hyperlipidemia, unspecified; W19.XXXA Unspecified fall, initial encounter; Y93.9 Activity, unspecified; Y92.090 Kitchen in other non-institutional residence as the place of occurrence of the external cause; Y99.9 Unspecified external cause status
CPT/HCPCS: 0241U-QW; 36415; 70450-TC; 71045-TC-FY; 72125-TC; 72170-TC-FY; 73502-TC-RT-FY; 80048; 80053; 82962; 83540; 83550; 84484; 85025; 85027; 85610; 85730; 86850; 86900; 86901; 88305-TC; 88311-TC; 93005; 93010; 94010; 94760; 97116-GP; 97162-GP; 99285-25; C1776; C9803-CS; J1644; J1756; U0003; U0005

== ENCOUNTER 2022-09-01 13:34 | Inpatient (IN) | payer OTHER ==
[2022-09-01] MEDS ORDERED: SODIUM CHLORIDE 0.9% 500 ML INFUS.BAG IV ONE (14:29)
[2022-09-01 14:51] LABS: BASO % 0.7 % (0-2.0); EOS % 3.5 % (0-4.5); HEMATOCRIT 35.7 % (32.4-45.2); HEMOGLOBIN 11.7 GM/dL (10.7-15.3); LYMPH % 14.7 % (8-40); MCH 29.3 pg (25.7-33.7); MCHC 32.9 g/dl (32.0-36.0); MEAN CELL VOLUME 89.1 fl (80-96); MEAN PLT VOLUME 9.1 fl (7.5-11.1); MONO % 5.2 % (3.8-10.2); NEUT % 75.9 % (42.8-82.8); PLATELET COUNT 381 10^3/uL (134-434); RDW 17.1 % (11.6-15.6); WHITE BLOOD COUNT 8.4 K/mm3 (4.0-10.0)
[2022-09-01 14:57] LABS: INR 3.4 (0.83-1.09)
[2022-09-01 14:59] LABS: ACTIVATED PTT 37.7 SECONDS (25.2-36.5)
[2022-09-01 15:15] LABS: POTASSIUM 4.9 mmol/L (3.5-5.1)
[2022-09-01 15:17] LABS: ALBUMIN 3.2 g/dl (3.4-5.0); CALCIUM 8.9 mg/dL (8.5-10.1)
[2022-09-01 15:18] LABS: BLOOD UREA NITROGEN 15.1 mg/dL (7-18)
[2022-09-01 15:20] LABS: CREATININE 0.8 mg/dL (0.55-1.3)
[2022-09-01 15:22] LABS: BILIRUBIN,TOTAL 0.6 mg/dL (0.2-1); TOT PROT 6.8 g/dl (6.4-8.2)
[2022-09-01 15:26] LABS: N-TERMINAL BNP 5976.2 pg/ml (5-450)
[2022-09-01 15:42] LABS: URINE APPEARANCE CLEAR; URINE BILIRUBIN NEGATIVE (NEGATIVE); URINE COLOR YELLOW; URINE GLUCOSE (UA) NEGATIVE (NEGATIVE); URINE KETONE NEGATIVE (NEGATIVE); URINE LEUK ESTERASE NEGATIVE (NEGATIVE); URINE NITRITE NEGATIVE (NEGATIVE); URINE PROTEIN NEGATIVE (NEGATIVE); URINE UROBILINOGEN 0.2 mg/dL (0.2-1.0)
[2022-09-01] MEDS ORDERED: METOPROLOL TARTRATE 25 MG TABLET (FP) PO ONE (18:29)
[2022-09-01] MEDS ORDERED: METOPROLOL TARTRATE 25 MG TABLET (FP) ONE (18:36)
[2022-09-01] MEDS ORDERED: CEFTRIAXONE 2 GM in DEXTROSE 5%-WATER 100 ML IVPB ONE (20:15)
[2022-09-01] MEDS ORDERED: CEFTRIAXONE 2 GM/100 ML BAG IVPB ONE (21:15)
[2022-09-02 00:16] VITALS: BMI 24.9
[2022-09-02] MEDS: DEXTROSE 5%-0.45% SALINE 1,000 ML IV SCH (01:00)
[2022-09-02 08:17] LABS: EOS % 6.3 % (0-4.5); HEMOGLOBIN 11.1 GM/dL (10.7-15.3); LYMPH % 21.7 % (8-40); MCH 29.9 pg (25.7-33.7); MCHC 33.6 g/dl (32.0-36.0); MEAN PLT VOLUME 9.6 fl (7.5-11.1); MONO % 6.8 % (3.8-10.2); NEUT % 64.2 % (42.8-82.8); PLATELET COUNT 352 10^3/uL (134-434); RDW 16.9 % (11.6-15.6)
[2022-09-02 08:26] LABS: INR 3.84 (0.83-1.09)
[2022-09-02 08:27] LABS: POTASSIUM 4.1 mmol/L (3.5-5.1)
[2022-09-02 08:30] LABS: CALCIUM 8.9 mg/dL (8.5-10.1)
[2022-09-02 08:31] LABS: BLOOD UREA NITROGEN 11.7 mg/dL (7-18)
[2022-09-02 08:34] LABS: CREATININE 0.6 mg/dL (0.55-1.3)
[2022-09-02 08:35] LABS: BILIRUBIN,TOTAL 0.7 mg/dL (0.2-1); TOT PROT 6.2 g/dl (6.4-8.2)
[2022-09-02] MEDS: CEFTRIAXONE 2 GM in DEXTROSE 5%-WATER 100 ML IVPB SCH (11:39)
[2022-09-02] MEDS: MELATONIN 5 MG TABLETS PO PRN (21:20)
[2022-09-03 07:26] LABS: PROTHROMBIN TIME (PATIENT) 47.8 SEC (9.7-13.0)
[2022-09-03 08:23] LABS: INR 4.18 (0.83-1.09)
[2022-09-03] MEDS: CEFTRIAXONE 2 GM in DEXTROSE 5%-WATER 100 ML IVPB SCH (09:05)
[2022-09-03] MEDS: DEXTROSE 5%-0.45% SALINE 1,000 ML IV SCH (09:06)
[2022-09-03] MEDS: MELATONIN 5 MG TABLETS PO PRN (21:28)
[2022-09-03] MEDS: METOPROLOL TARTRATE 25 MG TABLET (FP) PO SCH (21:28)
[2022-09-04 07:34] LABS: INR 3.55 (0.83-1.09); PROTHROMBIN TIME (PATIENT) 40.7 SEC (9.7-13.0)
[2022-09-04] MEDS: CEFTRIAXONE 2 GM in DEXTROSE 5%-WATER 100 ML IVPB SCH (09:06)
[2022-09-04] MEDS: METOPROLOL TARTRATE 25 MG TABLET (FP) PO SCH ×2 (09:07→21:40)
[2022-09-04] MEDS: MELATONIN 5 MG TABLETS PO PRN (21:40)
[2022-09-05] MEDS: DEXTROSE 5%-0.45% SALINE 1,000 ML IV SCH (02:10)
[2022-09-05] MEDS: METOPROLOL TARTRATE 50 MG TABLET (FP) PO SCH ×2 (09:21→21:45)
[2022-09-05] MEDS: CEFTRIAXONE 2 GM in DEXTROSE 5%-WATER 100 ML IVPB SCH (09:21)
[2022-09-05 10:11] LABS: BASO % 0.8 % (0-2.0); EOS % 7.7 % (0-4.5); HEMOGLOBIN 11.1 GM/dL (10.7-15.3); MCHC 32.5 g/dl (32.0-36.0); MEAN CELL VOLUME 89.2 fl (80-96); MEAN PLT VOLUME 8.5 fl (7.5-11.1); MONO % 5.5 % (3.8-10.2); PLATELET COUNT 305 10^3/uL (134-434); RBC 3.81 M/mm3 (3.60-5.2); RDW 17.1 % (11.6-15.6); WHITE BLOOD COUNT 5.2 K/mm3 (4.0-10.0)
[2022-09-05 11:24] LABS: ALBUMIN 2.8 g/dl (3.4-5.0); BILIRUBIN,TOTAL 0.4 mg/dL (0.2-1); BLOOD UREA NITROGEN 7.6 mg/dL (7-18); CALCIUM 8.5 mg/dL (8.5-10.1); CREATININE 0.6 mg/dL (0.55-1.3); POTASSIUM 3.3 mmol/L (3.5-5.1); TOT PROT 5.8 g/dl (6.4-8.2)
[2022-09-05] MEDS ORDERED: POTASSIUM CHLORIDE ORAL LIQUID 20 MEQ/15 ML PO ONE (17:08)
[2022-09-05] MEDS: MELATONIN 5 MG TABLETS PO PRN ×2 (21:35→21:46)
[2022-09-06 07:06] LABS: POTASSIUM 3.7 mmol/L (3.5-5.1)
[2022-09-06 07:09] LABS: CALCIUM 8.5 mg/dL (8.5-10.1)
[2022-09-06 07:10] LABS: BLOOD UREA NITROGEN 10.5 mg/dL (7-18)
[2022-09-06 07:13] LABS: CREATININE 0.6 mg/dL (0.55-1.3)
[2022-09-06] MEDS ORDERED: MAG HYDROX/AL HYDROX/SIMETH 30 ML UNIT-DOSE CUP PO PRN (08:08)
[2022-09-06] MEDS ORDERED: POLYETHYLENE GLYCOL (HEALTHYLAX) 3350 17 GM PACKET PO PRN (08:08)
[2022-09-06] MEDS ORDERED: ALBUTEROL SO4 2.5/IPRATROPIUM 0.5 INH SOL 3 ML VIAL.NEB. NEB PRN (08:08)
[2022-09-06] MEDS: METOPROLOL TARTRATE 50 MG TABLET (FP) PO SCH (09:32)
[2022-09-06] MEDS ORDERED: PANTOPRAZOLE 40 MG TABLET PO SCH (10:00)
[2022-09-06] MEDS ORDERED: BUDESONIDE/FORMETEROL FUMARATE 160/4.5 mcg INHALER IH SCH (10:00)
[2022-09-06 10:23] LABS: INR 1.81 (0.83-1.09); PROTHROMBIN TIME (PATIENT) 20.9 SEC (9.7-13.0)
[2022-09-06 13:55] VITALS: BP 113/59; PULSE 82
[2022-09-06 14:38] VITALS: RESP 18; TEMP 98.2
[2022-09-06] MEDS ORDERED: WARFARIN NA 2 MG TABLET PO SCH (18:00)
[2022-09-06] MEDS ORDERED: ATORVASTATIN CA 20 MG TABLET (FP) PO SCH (22:00)
== END 2022-09-06 19:45 | disposition home health service (06) | DRG 445 ==
LOC: JER 13:34 → JERBED 19:46 → J4W 21:33
PROVIDERS: ADMIT Internal Medicine; ATTEND Family Medicine
DX: K80.10 Calculus of gallbladder with chronic cholecystitis without obstruction (principal); I24.8 Other forms of acute ischemic heart disease; J44.9 Chronic obstructive pulmonary disease, unspecified; E78.5 Hyperlipidemia, unspecified; E11.9 Type 2 diabetes mellitus without complications; I10 Essential (primary) hypertension; Z86.73 Personal history of transient ischemic attack (TIA), and cerebral infarction without residual deficits; R00.0 Tachycardia, unspecified; Z79.4 Long term (current) use of insulin
CPT/HCPCS: 0241U-QW; 36415; 71045-TC-FY; 71275-TC; 76705-TC; 78226-TC; 80048; 80053; 81003; 82962; 83690; 83880; 84443; 84484; 85025; 85610; 85730; 93005; 93010; 93306-TC; 97116-GP; 97162-GP; 99285-25; A9537; Q9967